=== PATIENT | male | born 1940 | race Caucasian/White ===

== ENCOUNTER 2017-08-19 19:22 | Emergency (ER) | payer MEDICARE, MEDICAID ==
[~2017-08-19] VITALS: Ht 170.2 cm; Wt 94.9 kg
[~2017-08-19 19:22] MED LIST: ALBU18HF2 IH; ASPI-1265 PO; COR3.125T PO; CYAN-19 PO; FINA5TAB11 PO; FLO0.4C PO; FLUT1DIS4 INH; GEMF600T3 PO; NIT5P TD; NORCO10T PO; OMEG1CAP PO; PREN-139 PO; SPIIN IH; SUCR1ORA PO; TRAM50TA2 PO
[2017-08-19 21:00] LABS: BASOPHILS % (AUTO) 0.3 % (0-1); EOSINOPHILS # (AUTO) 0.3 X10'3 (0-0.9); HEMATOCRIT 41.3 % (42.0-52.0); HEMOGLOBIN 14.2 g/dl (14.0-17.9); LYMPHOCYTES # (AUTO) 1.4 X10'3 (1.1-4.8); LYMPHOCYTES % (AUTO) 24.5 % (21-51); MEAN CORPUSCULAR HEMOGLOBIN 33.9 PG (27.0-31.0); MEAN CORPUSCULAR HGB CONC 34.4 % (33.0-36.5); MEAN CORPUSCULAR VOLUME 98.4 FL (78-98); MEAN PLATELET VOLUME 8.4 FL (7.4-10.4); MONOCYTES # (AUTO) 0.5 X10'3 (0-0.9); MONOCYTES % (AUTO) 9.4 % (2-12); NEUTROPHILS # (AUTO) 3.4 X10'3 (1.8-7.7); NEUTROPHILS % (AUTO) 60.8 % (42-75); PLATELET COUNT 162 X10'3 (140-440); RED BLOOD COUNT 4.19 X10'6 (4.70-6.10); RED CELL DISTRIBUTION WIDTH 12.7 % (11.5-14.5); WHITE BLOOD COUNT 5.6 X10'3 (4.5-11.0)
[2017-08-19 21:07] LABS: PARTIAL THROMBOPLASTIN TIME 24 SECONDS (22-32); PROTHROMBIN TIME 10.1 SECONDS (9.0-12.0)
[2017-08-19 21:09] LABS: ALANINE AMINOTRANSFERASE 50 U/L (12-78); ALKALINE PHOSPHATASE 58 IU/L (46-116); ANION GAP 4 (8-16); ASPARTATE AMINO TRANSFERASE 35 U/L (10-37); BILIRUBIN,TOTAL 0.3 MG/DL (0.1-1.0); BLOOD UREA NITROGEN 22 MG/DL (7-18); BUN/CREATININE RATIO 22.2 (5.4-32.0); CALCIUM 9.2 MG/DL (8.5-10.1); CHLORIDE 103 MMOL/L (99-107); CREATININE 0.99 MG/DL (0.60-1.10); GLUCOSE 105 MG/DL (70-104); POTASSIUM 4.2 MMOL/L (3.5-5.1); SODIUM 139 MMOL/L (135-145); TOTAL CARBON DIOXIDE 32.4 MMOL/L (24-32); TOTAL PROTEIN 7.9 G/DL (6.4-8.2); eGFR 73 ML/MIN
[2017-08-19] MEDS ORDERED: BENZ-16 PO (21:45)
[2017-08-19 22:18] VITALS: BP 139/77
== END 2017-08-19 22:20 | disposition home or self-care (01) ==
LOC: ER 19:23
DX: B34.9 Viral infection, unspecified (principal); I25.10 Atherosclerotic heart disease of native coronary artery without angina pectoris; I10 Essential (primary) hypertension; E78.00 Pure hypercholesterolemia, unspecified; J44.9 Chronic obstructive pulmonary disease, unspecified; G89.29 Other chronic pain; I25.2 Old myocardial infarction; Z86.718 Personal history of other venous thrombosis and embolism; Z90.49 Acquired absence of other specified parts of digestive tract; Z95.5 Presence of coronary angioplasty implant and graft; Z88.0 Allergy status to penicillin; Z88.8 Allergy status to other drugs, medicaments and biological substances; Z79.82 Long term (current) use of aspirin; Z79.899 Other long term (current) drug therapy; Z86.73 Personal history of transient ischemic attack (TIA), and cerebral infarction without residual deficits
CPT/HCPCS: 36415; 71045; 80053; 84484; 85025; 85610; 85730; 93005; 99285

== ENCOUNTER 2018-03-22 01:11 | Emergency (ER) | payer MEDICARE, MEDICAID ==
[~2018-03-22] VITALS: Ht 170.2 cm; Wt 77.8 kg
[~2018-03-22 01:11] MED LIST changes: +BENZ-16 PO; -GEMF600T3 PO; +GEMF600T4 PO
[2018-03-22 03:36] VITALS: BP 114/61
== END 2018-03-22 03:43 | disposition home or self-care (01) ==
LOC: ER 01:12
DX: R04.0 Epistaxis (principal); I25.10 Atherosclerotic heart disease of native coronary artery without angina pectoris; E78.00 Pure hypercholesterolemia, unspecified; I10 Essential (primary) hypertension; I25.2 Old myocardial infarction; J44.9 Chronic obstructive pulmonary disease, unspecified; Z90.49 Acquired absence of other specified parts of digestive tract; Z98.890 Other specified postprocedural states; Z98.61 Coronary angioplasty status; Z60.2 Problems related to living alone; Z86.73 Personal history of transient ischemic attack (TIA), and cerebral infarction without residual deficits; Z88.0 Allergy status to penicillin; Z88.6 Allergy status to analgesic agent; Z79.82 Long term (current) use of aspirin; Z79.899 Other long term (current) drug therapy
CPT/HCPCS: 99281

== ENCOUNTER 2018-04-14 23:07 | Inpatient (IN) | payer MEDICARE, MEDICAID, OTHER ==
[~2018-04-14] VITALS: Ht 170.2 cm; Wt 86.4 kg
[2018-04-14 23:42] LABS: BASOPHILS % (AUTO) 0.4 % (0-1); EOSINOPHILS # (AUTO) 0.3 X10'3 (0-0.9); EOSINOPHILS % (AUTO) 5.3 % (0-6); HEMOGLOBIN 14.5 g/dl (14.0-17.9); LYMPHOCYTES # (AUTO) 1.8 X10'3 (1.1-4.8); LYMPHOCYTES % (AUTO) 27.9 % (21-51); MEAN CORPUSCULAR HEMOGLOBIN 34.2 PG (27.0-31.0); MEAN CORPUSCULAR HGB CONC 34.6 % (33.0-36.5); MEAN CORPUSCULAR VOLUME 98.8 FL (78-98); MEAN PLATELET VOLUME 8.5 FL (7.4-10.4); MONOCYTES # (AUTO) 0.5 X10'3 (0-0.9); MONOCYTES % (AUTO) 7.8 % (2-12); NEUTROPHILS # (AUTO) 3.8 X10'3 (1.8-7.7); NEUTROPHILS % (AUTO) 58.6 % (42-75); PLATELET COUNT 198 X10'3 (140-440); RED BLOOD COUNT 4.25 X10'6 (4.70-6.10); RED CELL DISTRIBUTION WIDTH 13.1 % (11.5-14.5); WHITE BLOOD COUNT 6.5 X10'3 (4.5-11.0)
[2018-04-14 23:51] LABS: PROTHROMBIN TIME 10.1 SECONDS (9.0-12.0)
[2018-04-14 23:58] LABS: ALANINE AMINOTRANSFERASE 33 U/L (12-78); ALBUMIN 2.9 G/DL (3.4-5.0); ALBUMIN/GLOBULIN RATIO 1.2 (1.1-1.5); ALKALINE PHOSPHATASE 55 IU/L (46-116); ANION GAP 11 (8-16); ASPARTATE AMINO TRANSFERASE 24 U/L (10-37); BILIRUBIN,TOTAL 0.3 MG/DL (0.1-1.0); BLOOD UREA NITROGEN 11 MG/DL (7-18); BUN/CREATININE RATIO 15.1 (5.4-32.0); CALCIUM 6.3 MG/DL (8.5-10.1); CHLORIDE 116 MMOL/L (99-107); CREATININE 0.73 MG/DL (0.60-1.10); GLUCOSE 95 MG/DL (70-104); SODIUM 144 MMOL/L (135-145); TOTAL CARBON DIOXIDE 17.2 MMOL/L (24-32); TOTAL PROTEIN 5.4 G/DL (6.4-8.2); eGFR > 90 ML/MIN
[2018-04-15] MEDS ORDERED: morphine 4 MG/ML inj SYRINge IV PRN
[2018-04-15] MEDS ORDERED: pantoprazole 40 MG vial IV ONE
[2018-04-15] MEDS ORDERED: ondansetron/PF 4mg/2ml inj IV ONE
[2018-04-15] MEDS ORDERED: normal saline 1000ML IV soln IVB ONE
[2018-04-15 00:03] LABS: CLARITY,URINE SLIGHTLY CLOUDY (Clear); COLOR,URINE YELLOW (Yellow); GLUCOSE, URINE NEGATIVE (Neg); KETONES,URINE NEGATIVE (Neg); LEUKOCYTE ESTERASE ,URINE NEGATIVE (Neg); NITRITES, URINE NEGATIVE (Neg); OCCULT BLOOD,URINE TRACE-INTACT (Neg); PH,URINE 5.5 (4.8-8.0); PROTEIN,URINE 30 mg/dl (Neg); UROBILINOGEN,URINE 0.2 E.U/dL (0.2-1.0)
[2018-04-15 00:04] LABS: POTASSIUM 2.4 MMOL/L (3.5-5.1)
[2018-04-15 00:08] LABS: UA COLLECTION TYPE CLN CATCH MIDSTREAM
[2018-04-15 00:10] LABS: BACTERIA,URINE FEW /HPF (Neg); MUCUS STRANDS FEW /LPF (Neg); SQUAMOUS EPITHELIAL CELL,UR FEW /LPF (FEW); WBC,URINE 0-4 /HPF (0-4)
[2018-04-15 00:12] LABS: CELLULAR CAST 0-4 /LPF (NEGATIVE)
[2018-04-15 00:12] LABS: LIPASE 195 U/L (73-393)
[2018-04-15] MEDS: potassium 10mEq/100ml NS w/LIDOcaine (10mg/bag) IV SCH ×2 (00:32→03:05)
[2018-04-15] MEDS ORDERED: iohexol 300mg/ml 100ml inj. ONE (00:45)
[2018-04-15] MEDS ORDERED: acetaminophen 650mg rectal suppository RC PRN (02:25)
[2018-04-15] MEDS ORDERED: diphenhydrAMINE 50 mg/ml inj IV PRN (02:25)
[2018-04-15] MEDS ORDERED: metoclopramide 5 mg/ml inj IV PRN (02:25)
[2018-04-15] MEDS ORDERED: mag hydrox/Alum hydrox/simeth 30ml oral suspension PO PRN (02:25)
[2018-04-15] MEDS ORDERED: morphine 2 MG/ML inj. syringe IV PRN ×2 (02:25)
[2018-04-15] MEDS ORDERED: acetaminophen 325mg tablet PO PRN ×2 (02:25)
[2018-04-15] MEDS ORDERED: HYDROcodone/acetaminophen 5mg/325mg tablet PO PRN (02:25)
[2018-04-15] MEDS ORDERED: diphenhydrAMINE 25mg capsule PO PRN (02:25)
[2018-04-15] MEDS ORDERED: bisacodyl 10mg suppository rectal RC PRN (02:25)
[2018-04-15] MEDS ORDERED: potassium Cl 40MEQ/NS 500ml 500 ML IV PRN (02:25)
[2018-04-15] MEDS ORDERED: magnesium hydroxide 30ml (MOM) UD suspension PO PRN (02:25)
[2018-04-15] MEDS ORDERED: potassium Cl 20 mEq SR tablet PO PRN ×2 (02:25)
[2018-04-15] MEDS ORDERED: ondansetron/PF 4mg/2ml inj IV PRN (02:25)
[2018-04-15] MEDS ORDERED: HYDROmorphone inj. 0.5 MG/0.5 ML DISP.SYRIN IV PRN ×2 (02:25)
[2018-04-15] MEDS ORDERED: HYDROmorphone 1 mg/ml syringe IV PRN (02:31)
[2018-04-15 02:47] LABS: PARTIAL THROMBOPLASTIN TIME 25 SECONDS (22-32)
[2018-04-15 02:54] LABS: HEMOGLOBIN A1C 6.1 % (4.5-6.2)
[2018-04-15] MEDS ORDERED: ROSU20TA PO (02:54)
[2018-04-15 02:58] LABS: MAGNESIUM 1.5 MG/DL (1.5-2.4); PHOSPHORUS 2.6 MG/DL (2.3-4.5)
[2018-04-15] MEDS: potassium Cl 20mEq in NS 1,000 ML IV SCH ×3 (03:06→20:34)
[2018-04-15] MEDS: HYDROmorphone 1 mg/ml syringe IV PRN ×2 (04:14→21:37)
[2018-04-15 05:22] VITALS: BP 127/72
[2018-04-15 07:16] VITALS: BP 128/74
[2018-04-15] MEDS: heparin, porcine 5000 units/ml vial SQ SCH ×2 (07:26→20:26)
[2018-04-15] MEDS: potassium Cl 40MEQ/NS 500ml 500 ML IV PRN ×2 (07:26→12:44)
[2018-04-15] MEDS: docusate sod 100mg capsule PO SCH ×2 (07:27→20:00)
[2018-04-15] MEDS: K and/or MAG REPLACEMENT MC SCH (07:27)
[2018-04-15] MEDS: magnesium oxide 400mg tablet PO SCH ×3 (07:37→23:08)
[2018-04-15] MEDS ORDERED: pantoprazole 40 MG vial IV SCH (08:00)
[2018-04-15] MEDS ORDERED: HYDROcodone/acetaminophen 10/325mg tab PO PRN (10:00)
[2018-04-15] MEDS: ipratropium 0.5 MG/2.5ML nebule IH SCH ×3 (10:40→20:43)
[2018-04-15 10:44] LABS: OCCULT BLOOD STOOL NEGATIVE (Neg)
[2018-04-15 10:45] LABS: C DIFF ANTIGEN NEGATIVE (NEGATIVE); C DIFF SPECIMEN=DIARRHEA? ACCEPTABLE; C DIFFICILE TOXINS A&B NEGATIVE (Neg)
[2018-04-15 11:00] VITALS: BP 137/68
[2018-04-15] MEDS: HYDROcodone/acetaminophen 10/325mg tab PO PRN ×2 (15:06→20:34)
[2018-04-15 20:00] VITALS: BP 132/88
[2018-04-15] MEDS: sucralfate 1gm/10ml UD suspension PO SCH (20:24)
[2018-04-15] MEDS: omega-3 acid ethyl esters 1GM capsule PO SCH (20:24)
[2018-04-15] MEDS: gemfibrozil 600mg tablet PO SCH (20:25)
[2018-04-15] MEDS: carvedilol 6.25mg tablet PO SCH (20:25)
[2018-04-15] MEDS ORDERED: temazepam 15mg capsule PO PRN (21:00)
[2018-04-15] MEDS ORDERED: tamsulosin 0.4mg capsule PO SCH (21:00)
[2018-04-15] MEDS ORDERED: SUMA25TA35 PO (21:47)
[2018-04-15] MEDS ORDERED: SUMAtriptan 25 MG tablet PO ONE (22:00)
[2018-04-16] VITALS: BP 116/65
[2018-04-16] MEDS: ipratropium 0.5 MG/2.5ML nebule IH SCH ×2 (02:16→08:06)
[2018-04-16 05:06] LABS: BASOPHILS % (AUTO) 0.5 % (0-1); EOSINOPHILS # (AUTO) 0.3 X10'3 (0-0.9); EOSINOPHILS % (AUTO) 6.9 % (0-6); HEMATOCRIT 34.8 % (42.0-52.0); HEMOGLOBIN 12.3 g/dl (14.0-17.9); LYMPHOCYTES # (AUTO) 1.6 X10'3 (1.1-4.8); LYMPHOCYTES % (AUTO) 43.7 % (21-51); MEAN CORPUSCULAR HEMOGLOBIN 34.6 PG (27.0-31.0); MEAN CORPUSCULAR HGB CONC 35.3 % (33.0-36.5); MEAN CORPUSCULAR VOLUME 97.9 FL (78-98); MEAN PLATELET VOLUME 8.6 FL (7.4-10.4); MONOCYTES # (AUTO) 0.2 X10'3 (0-0.9); MONOCYTES % (AUTO) 6.7 % (2-12); NEUTROPHILS # (AUTO) 1.6 X10'3 (1.8-7.7); NEUTROPHILS % (AUTO) 42.2 % (42-75); PLATELET COUNT 134 X10'3 (140-440); RED BLOOD COUNT 3.55 X10'6 (4.70-6.10); RED CELL DISTRIBUTION WIDTH 13.4 % (11.5-14.5); WHITE BLOOD COUNT 3.7 X10'3 (4.5-11.0)
[2018-04-16] MEDS: potassium Cl 20mEq in NS 1,000 ML IV SCH (05:06)
[2018-04-16 05:30] LABS: ALANINE AMINOTRANSFERASE 39 U/L (12-78); ALBUMIN 3.1 G/DL (3.4-5.0); ALKALINE PHOSPHATASE 61 IU/L (46-116); ANION GAP 10 (8-16); ASPARTATE AMINO TRANSFERASE 26 U/L (10-37); BILIRUBIN,TOTAL 0.2 MG/DL (0.1-1.0); BLOOD UREA NITROGEN 14 MG/DL (7-18); BUN/CREATININE RATIO 16.9 (5.4-32.0); CALCIUM 8.1 MG/DL (8.5-10.1); CHLORIDE 110 MMOL/L (99-107); CREATININE 0.83 MG/DL (0.60-1.10); GLUCOSE 98 MG/DL (70-104); SODIUM 140 MMOL/L (135-145); TOTAL CARBON DIOXIDE 20.2 MMOL/L (24-32); TOTAL PROTEIN 6.1 G/DL (6.4-8.2); eGFR 89 ML/MIN
[2018-04-16 07:20] VITALS: BP 128/80
[2018-04-16] MEDS ORDERED: pantoprazole 40mg Tablet.DR PO SCH (07:30)
[2018-04-16] MEDS: sucralfate 1gm/10ml UD suspension PO SCH (07:57)
[2018-04-16] MEDS: omega-3 acid ethyl esters 1GM capsule PO SCH (07:59)
[2018-04-16] MEDS: gemfibrozil 600mg tablet PO SCH (07:59)
[2018-04-16] MEDS: carvedilol 6.25mg tablet PO SCH (07:59)
[2018-04-16] MEDS: magnesium oxide 400mg tablet PO SCH (07:59)
[2018-04-16] MEDS: heparin, porcine 5000 units/ml vial SQ SCH (07:59)
[2018-04-16] MEDS: docusate sod 100mg capsule PO SCH (07:59)
[2018-04-16] MEDS ORDERED: cyanocobalamin 500mcg tablet PO SCH (08:00)
[2018-04-16] MEDS ORDERED: atorvastatin 20mg tablet PO SCH (08:00)
[2018-04-16] MEDS ORDERED: nitroGLYCERIN 0.2mg/hour patch TD SCH (08:00)
[2018-04-16] MEDS: K and/or MAG REPLACEMENT MC SCH (08:00)
[2018-04-16] MEDS ORDERED: finasteride 5mg tablet PO SCH (08:00)
[2018-04-16] MEDS ORDERED: PNV NO.63/IRON,CARBONYL/FA/DHA 1 EACH CAPSULE PO SCH (08:00)
[2018-04-16] MEDS ORDERED: aspirin 81mg tab.chew PO SCH (08:00)
[2018-04-16] MEDS ORDERED: PANT40TA4 PO (09:08)
== END 2018-04-16 11:25 | disposition home or self-care (01) | DRG 392 ==
LOC: ER 23:07 → ED HOLD 04-15 02:22 → SUR 3N 04-15 04:59
PROVIDERS: ADMIT Family Medicine; ATTEND Family Medicine
PROC: BW211ZZ Computerized Tomography (CT Scan) of Abdomen and Pelvis using Low Osmolar Contrast (ICD-10-PCS; principal; 2018-04-15)
DX: A08.4 Viral intestinal infection, unspecified (principal); E87.6 Hypokalemia; I25.10 Atherosclerotic heart disease of native coronary artery without angina pectoris; E78.00 Pure hypercholesterolemia, unspecified; E78.1 Pure hyperglyceridemia; E78.5 Hyperlipidemia, unspecified; E86.0 Dehydration; I11.0 Hypertensive heart disease with heart failure; G89.29 Other chronic pain; K21.9 Gastro-esophageal reflux disease without esophagitis; M54.9 Dorsalgia, unspecified; J44.9 Chronic obstructive pulmonary disease, unspecified; Z60.2 Problems related to living alone; N40.0 Benign prostatic hyperplasia without lower urinary tract symptoms; I50.9 Heart failure, unspecified; I25.2 Old myocardial infarction; Z90.49 Acquired absence of other specified parts of digestive tract; Z95.5 Presence of coronary angioplasty implant and graft; Z88.5 Allergy status to narcotic agent; Z88.0 Allergy status to penicillin; Z79.899 Other long term (current) drug therapy; Z79.82 Long term (current) use of aspirin; Z86.73 Personal history of transient ischemic attack (TIA), and cerebral infarction without residual deficits; Z87.891 Personal history of nicotine dependence; Z86.718 Personal history of other venous thrombosis and embolism
CPT/HCPCS: 36415; 71045; 74177; 80053; 81001; 81003; 82272; 83036; 83690; 83735; 83880; 84100; 84132; 84443; 85025; 85610; 85730; 87045; 87046; 87070; 87324; 87449; 89055; 94640; 94760; 96361; 96374; 96375; 99285; C9113; J1170; J1644; J2270; J2405; J2765; J3420; J3480; J7030; Q9967

== ENCOUNTER 2018-04-18 22:43 | Emergency (ER) | payer MEDICARE, MEDICAID, OTHER ==
[~2018-04-18] VITALS: Ht 170.2 cm; Wt 78.2 kg
[~2018-04-18 22:43] MED LIST changes: -ALBU18HF2 IH; -BENZ-16 PO; -FLUT1DIS4 INH; +PANT40TA4 PO; +ROSU20TA PO; -SUCR1ORA PO; +SUMA25TA35 PO; -TRAM50TA2 PO
[2018-04-18 23:33] LABS: BASOPHILS % (AUTO) 0.5 % (0-1); EOSINOPHILS # (AUTO) 0.4 X10'3 (0-0.9); EOSINOPHILS % (AUTO) 6.9 % (0-6); HEMATOCRIT 38.9 % (42.0-52.0); HEMOGLOBIN 13.6 g/dl (14.0-17.9); LYMPHOCYTES # (AUTO) 2.2 X10'3 (1.1-4.8); LYMPHOCYTES % (AUTO) 40.2 % (21-51); MEAN CORPUSCULAR HEMOGLOBIN 34.2 PG (27.0-31.0); MEAN CORPUSCULAR HGB CONC 34.9 % (33.0-36.5); MEAN CORPUSCULAR VOLUME 97.8 FL (78-98); MONOCYTES # (AUTO) 0.5 X10'3 (0-0.9); MONOCYTES % (AUTO) 9.6 % (2-12); NEUTROPHILS # (AUTO) 2.3 X10'3 (1.8-7.7); NEUTROPHILS % (AUTO) 42.8 % (42-75); PLATELET COUNT 172 X10'3 (140-440); RED BLOOD COUNT 3.97 X10'6 (4.70-6.10); RED CELL DISTRIBUTION WIDTH 13.2 % (11.5-14.5); WHITE BLOOD COUNT 5.4 X10'3 (4.5-11.0)
[2018-04-18 23:44] LABS: INR 0.9 INR; PROTHROMBIN TIME 9.5 SECONDS (9.0-12.0)
[2018-04-18 23:48] LABS: ALANINE AMINOTRANSFERASE 42 U/L (12-78); ALBUMIN 3.8 G/DL (3.4-5.0); ALBUMIN/GLOBULIN RATIO 1.1 (1.1-1.5); ALKALINE PHOSPHATASE 73 IU/L (46-116); ANION GAP 8 (8-16); ASPARTATE AMINO TRANSFERASE 24 U/L (10-37); BILIRUBIN,TOTAL 0.2 MG/DL (0.1-1.0); BLOOD UREA NITROGEN 13 MG/DL (7-18); BUN/CREATININE RATIO 15.1 (5.4-32.0); CALCIUM 8.7 MG/DL (8.5-10.1); CHLORIDE 106 MMOL/L (99-107); CREATININE 0.86 MG/DL (0.60-1.10); GLUCOSE 115 MG/DL (70-104); POTASSIUM 4.1 MMOL/L (3.5-5.1); SODIUM 141 MMOL/L (135-145); TOTAL CARBON DIOXIDE 26.9 MMOL/L (24-32); TOTAL PROTEIN 7.3 G/DL (6.4-8.2); eGFR 86 ML/MIN
[2018-04-19] MEDS ORDERED: simethicone 125mg capsule PO SCH (00:05)
[2018-04-19 00:40] VITALS: BP 129/74
== END 2018-04-19 01:15 | disposition home or self-care (01) ==
LOC: ER 22:44
DX: R10.10 Upper abdominal pain, unspecified (principal); R14.0 Abdominal distension (gaseous); R30.9 Painful micturition, unspecified; I25.10 Atherosclerotic heart disease of native coronary artery without angina pectoris; E78.00 Pure hypercholesterolemia, unspecified; I10 Essential (primary) hypertension; I25.2 Old myocardial infarction; J44.9 Chronic obstructive pulmonary disease, unspecified; G89.29 Other chronic pain; Z86.73 Personal history of transient ischemic attack (TIA), and cerebral infarction without residual deficits; Z86.718 Personal history of other venous thrombosis and embolism; Z98.61 Coronary angioplasty status; Z90.49 Acquired absence of other specified parts of digestive tract; Z98.890 Other specified postprocedural states; Z60.2 Problems related to living alone; Z88.0 Allergy status to penicillin; Z88.6 Allergy status to analgesic agent; Z79.82 Long term (current) use of aspirin; Z79.899 Other long term (current) drug therapy
CPT/HCPCS: 36415; 74018; 80053; 85025; 85610; 99285

== ENCOUNTER 2018-04-20 18:44 | Inpatient (IN) | payer MEDICARE, MEDICAID, OTHER ==
[~2018-04-20] VITALS: Ht 170.2 cm; Wt 86.4 kg
[2018-04-20] MEDS ORDERED: ondansetron/PF 4mg/2ml inj IV ONE (19:35)
[2018-04-20] MEDS ORDERED: normal saline 1000ml 1,000 ML IV ONE (19:35)
[2018-04-20 19:48] LABS: BASOPHILS % (AUTO) 0.3 % (0-1); EOSINOPHILS # (AUTO) 0.3 X10'3 (0-0.9); EOSINOPHILS % (AUTO) 5.9 % (0-6); HEMATOCRIT 42.4 % (42.0-52.0); HEMOGLOBIN 14.6 g/dl (14.0-17.9); LYMPHOCYTES # (AUTO) 1.9 X10'3 (1.1-4.8); MEAN CORPUSCULAR HGB CONC 34.4 % (33.0-36.5); MEAN CORPUSCULAR VOLUME 98.7 FL (78-98); MEAN PLATELET VOLUME 8.2 FL (7.4-10.4); MONOCYTES # (AUTO) 0.5 X10'3 (0-0.9); MONOCYTES % (AUTO) 9.5 % (2-12); NEUTROPHILS # (AUTO) 2.8 X10'3 (1.8-7.7); NEUTROPHILS % (AUTO) 50.3 % (42-75); PLATELET COUNT 196 X10'3 (140-440); RED BLOOD COUNT 4.29 X10'6 (4.70-6.10); RED CELL DISTRIBUTION WIDTH 13.3 % (11.5-14.5); WHITE BLOOD COUNT 5.7 X10'3 (4.5-11.0)
[2018-04-20 19:57] LABS: INR 0.9 INR; PROTHROMBIN TIME 9.7 SECONDS (9.0-12.0)
[2018-04-20 20:06] LABS: ALANINE AMINOTRANSFERASE 50 U/L (12-78); ALBUMIN 4.1 G/DL (3.4-5.0); ALBUMIN/GLOBULIN RATIO 1.1 (1.1-1.5); ALKALINE PHOSPHATASE 74 IU/L (46-116); ANION GAP 8 (8-16); ASPARTATE AMINO TRANSFERASE 29 U/L (10-37); BILIRUBIN,TOTAL 0.2 MG/DL (0.1-1.0); BLOOD UREA NITROGEN 15 MG/DL (7-18); BUN/CREATININE RATIO 16.9 (5.4-32.0); CALCIUM 9.1 MG/DL (8.5-10.1); CHLORIDE 108 MMOL/L (99-107); CREATININE 0.89 MG/DL (0.60-1.10); GLUCOSE 91 MG/DL (70-104); LIPASE 354 U/L (73-393); POTASSIUM 3.9 MMOL/L (3.5-5.1); SODIUM 141 MMOL/L (135-145); TOTAL CARBON DIOXIDE 24.8 MMOL/L (24-32); TOTAL PROTEIN 7.8 G/DL (6.4-8.2); eGFR 82 ML/MIN
[2018-04-20 20:35] LABS: CLARITY,URINE CLEAR (Clear); COLOR,URINE YELLOW (Yellow); GLUCOSE, URINE NEGATIVE (Neg); KETONES,URINE TRACE mg/dl (Neg); LEUKOCYTE ESTERASE ,URINE NEGATIVE (Neg); NITRITES, URINE NEGATIVE (Neg); OCCULT BLOOD,URINE NEGATIVE (Neg); PROTEIN,URINE NEGATIVE (Neg); UROBILINOGEN,URINE 0.2 E.U/dL (0.2-1.0)
[2018-04-20 20:40] LABS: UA COLLECTION TYPE CLN CATCH MIDSTREAM
[2018-04-20] MEDS ORDERED: temazepam 15mg capsule PO PRN (21:00)
[2018-04-20] MEDS ORDERED: HYDROmorphone 1 mg/ml syringe IV ONE (22:15)
[2018-04-20] MEDS ORDERED: LIDOcaine Viscous 15ml cup MM PRN (22:15)
[2018-04-20] MEDS ORDERED: SUMAtriptan 25 MG tablet PO PRN (23:00)
[2018-04-20] MEDS ORDERED: HYDROcodone/acetaminophen 10/325mg tab PO PRN (23:00)
[2018-04-20] MEDS: normal saline 1000ml 1,000 ML IV SCH (23:06)
[2018-04-20] MEDS ORDERED: magnesium hydroxide 30ml (MOM) UD suspension PO PRN (23:10)
[2018-04-20] MEDS ORDERED: mag hydrox/Alum hydrox/simeth 30ml oral suspension PO PRN (23:10)
[2018-04-20] MEDS ORDERED: ondansetron/PF 4mg/2ml inj IV PRN (23:10)
[2018-04-20] MEDS ORDERED: diphenhydrAMINE 25mg capsule PO PRN (23:10)
[2018-04-20] MEDS ORDERED: morphine 2 MG/ML inj. syringe IV PRN ×2 (23:10)
[2018-04-20] MEDS ORDERED: acetaminophen 325mg tablet PO PRN (23:10)
[2018-04-20] MEDS ORDERED: bisacodyl 10mg suppository rectal RC PRN (23:10)
[2018-04-20] MEDS ORDERED: HYDROcodone/acetaminophen 5mg/325mg tablet PO PRN (23:10)
[2018-04-20] MEDS ORDERED: acetaminophen 650mg rectal suppository RC PRN (23:10)
[2018-04-20] MEDS ORDERED: diphenhydrAMINE 50 mg/ml inj IV PRN (23:10)
[2018-04-20 23:44] LABS: PARTIAL THROMBOPLASTIN TIME 24 SECONDS (22-32)
[2018-04-20 23:50] LABS: MAGNESIUM 2.2 MG/DL (1.5-2.4); PHOSPHORUS 3.5 MG/DL (2.3-4.5)
[2018-04-21 00:07] LABS: H PYLORI ANTIBODY NEGATIVE (Neg)
[2018-04-21 00:30] VITALS: BP 146/82
[2018-04-21] MEDS: metoclopramide 5 mg/ml inj IV SCH ×4 (02:01→20:25)
[2018-04-21] MEDS: ipratropium 0.5 MG/2.5ML nebule IH SCH ×3 (03:21→19:55)
[2018-04-21] MEDS: HYDROcodone/acetaminophen 10/325mg tab PO PRN ×4 (03:54→20:25)
[2018-04-21 05:16] LABS: BASOPHILS % (AUTO) 0.4 % (0-1); EOSINOPHILS # (AUTO) 0.2 X10'3 (0-0.9); EOSINOPHILS % (AUTO) 5.2 % (0-6); HEMATOCRIT 38.7 % (42.0-52.0); HEMOGLOBIN 13.4 g/dl (14.0-17.9); LYMPHOCYTES # (AUTO) 1.9 X10'3 (1.1-4.8); LYMPHOCYTES % (AUTO) 41.9 % (21-51); MEAN CORPUSCULAR HEMOGLOBIN 34.2 PG (27.0-31.0); MEAN CORPUSCULAR HGB CONC 34.7 % (33.0-36.5); MEAN CORPUSCULAR VOLUME 98.6 FL (78-98); MEAN PLATELET VOLUME 8.7 FL (7.4-10.4); MONOCYTES # (AUTO) 0.4 X10'3 (0-0.9); MONOCYTES % (AUTO) 8.9 % (2-12); NEUTROPHILS % (AUTO) 43.6 % (42-75); PLATELET COUNT 149 X10'3 (140-440); RED BLOOD COUNT 3.93 X10'6 (4.70-6.10); RED CELL DISTRIBUTION WIDTH 13.3 % (11.5-14.5); WHITE BLOOD COUNT 4.6 X10'3 (4.5-11.0)
[2018-04-21 05:42] LABS: ALANINE AMINOTRANSFERASE 46 U/L (12-78); ALBUMIN 3.6 G/DL (3.4-5.0); ALBUMIN/GLOBULIN RATIO 1.2 (1.1-1.5); ALKALINE PHOSPHATASE 56 IU/L (46-116); ANION GAP 11 (8-16); ASPARTATE AMINO TRANSFERASE 30 U/L (10-37); BILIRUBIN,TOTAL 0.3 MG/DL (0.1-1.0); BLOOD UREA NITROGEN 15 MG/DL (7-18); BUN/CREATININE RATIO 18.3 (5.4-32.0); CALCIUM 8.5 MG/DL (8.5-10.1); CHLORIDE 109 MMOL/L (99-107); CREATININE 0.82 MG/DL (0.60-1.10); GLUCOSE 95 MG/DL (70-104); POTASSIUM 3.8 MMOL/L (3.5-5.1); SODIUM 144 MMOL/L (135-145); TOTAL CARBON DIOXIDE 23.6 MMOL/L (24-32); TOTAL PROTEIN 6.7 G/DL (6.4-8.2); eGFR > 90 ML/MIN
[2018-04-21 06:57] VITALS: BP 135/93
[2018-04-21] MEDS ORDERED: pantoprazole 40mg Tablet.DR PO SCH (07:30)
[2018-04-21] MEDS ORDERED: nitroGLYCERIN 0.2mg/hour patch TD SCH (08:00)
[2018-04-21] MEDS ORDERED: TIOTROPIUM BROMIDE 18 MCG IH SCH (08:00)
[2018-04-21] MEDS: omega-3 acid ethyl esters 1GM capsule PO SCH ×2 (08:03→20:26)
[2018-04-21] MEDS: pantoprazole 40 MG vial IV SCH ×2 (08:03→20:25)
[2018-04-21] MEDS: docusate sod 100mg capsule PO SCH ×2 (08:03→20:25)
[2018-04-21] MEDS: heparin, porcine 5000 units/ml vial SQ SCH ×2 (08:03→20:27)
[2018-04-21] MEDS: aspirin 81mg tab.chew PO SCH (08:04)
[2018-04-21] MEDS: cyanocobalamin 500mcg tablet PO SCH (08:04)
[2018-04-21] MEDS: atorvastatin 20mg tablet PO SCH (08:04)
[2018-04-21] MEDS: carVEDilol 3.125mg tablet PO SCH ×2 (08:04→20:25)
[2018-04-21] MEDS: PNV NO.63/IRON,CARBONYL/FA/DHA 1 EACH CAPSULE PO SCH (10:37)
[2018-04-21] MEDS: normal saline 1000ml 1,000 ML IV SCH ×2 (10:37→22:28)
[2018-04-21] MEDS: finasteride 5mg tablet PO SCH (10:38)
[2018-04-21] MEDS: gemfibrozil 600mg tablet PO SCH ×2 (10:38→20:26)
[2018-04-21 13:58] VITALS: BP 131/51
[2018-04-21 19:30] VITALS: BP 149/69
[2018-04-21] MEDS ORDERED: tamsulosin 0.4mg capsule PO SCH (21:00)
[2018-04-21] MEDS: diatr meglu/diatrizoate 30ml oral sol.-(3 dose) bottle PO SCH (21:32)
[2018-04-22] VITALS: BP 109/72
[2018-04-22] MEDS: metoclopramide 5 mg/ml inj IV SCH ×3 (01:42→15:07)
[2018-04-22] MEDS: HYDROcodone/acetaminophen 10/325mg tab PO PRN ×2 (01:43→05:21)
[2018-04-22] MEDS: ipratropium 0.5 MG/2.5ML nebule IH SCH ×3 (02:46→15:38)
[2018-04-22] MEDS: normal saline 1000ml 1,000 ML IV SCH ×2 (05:06→08:46)
[2018-04-22 05:37] LABS: BASOPHILS % (AUTO) 0.5 % (0-1); EOSINOPHILS # (AUTO) 0.2 X10'3 (0-0.9); EOSINOPHILS % (AUTO) 4.5 % (0-6); HEMATOCRIT 36.7 % (42.0-52.0); HEMOGLOBIN 12.7 g/dl (14.0-17.9); LYMPHOCYTES # (AUTO) 1.6 X10'3 (1.1-4.8); LYMPHOCYTES % (AUTO) 38.4 % (21-51); MEAN CORPUSCULAR HEMOGLOBIN 33.9 PG (27.0-31.0); MEAN CORPUSCULAR HGB CONC 34.7 % (33.0-36.5); MEAN CORPUSCULAR VOLUME 97.7 FL (78-98); MONOCYTES # (AUTO) 0.3 X10'3 (0-0.9); MONOCYTES % (AUTO) 7.8 % (2-12); NEUTROPHILS % (AUTO) 48.8 % (42-75); PLATELET COUNT 139 X10'3 (140-440); RED BLOOD COUNT 3.75 X10'6 (4.70-6.10); RED CELL DISTRIBUTION WIDTH 13.4 % (11.5-14.5); WHITE BLOOD COUNT 4.2 X10'3 (4.5-11.0)
[2018-04-22 05:58] LABS: ALANINE AMINOTRANSFERASE 50 U/L (12-78); ALBUMIN 3.3 G/DL (3.4-5.0); ALBUMIN/GLOBULIN RATIO 1.1 (1.1-1.5); ALKALINE PHOSPHATASE 60 IU/L (46-116); ANION GAP 10 (8-16); ASPARTATE AMINO TRANSFERASE 30 U/L (10-37); BILIRUBIN,TOTAL 0.3 MG/DL (0.1-1.0); BLOOD UREA NITROGEN 11 MG/DL (7-18); BUN/CREATININE RATIO 13.1 (5.4-32.0); CALCIUM 8.2 MG/DL (8.5-10.1); CHLORIDE 108 MMOL/L (99-107); CREATININE 0.84 MG/DL (0.60-1.10); GLUCOSE 98 MG/DL (70-104); POTASSIUM 3.9 MMOL/L (3.5-5.1); SODIUM 142 MMOL/L (135-145); TOTAL CARBON DIOXIDE 23.6 MMOL/L (24-32); TOTAL PROTEIN 6.2 G/DL (6.4-8.2); eGFR 88 ML/MIN
[2018-04-22 07:14] VITALS: BP 133/62
[2018-04-22] MEDS: diatr meglu/diatrizoate 30ml oral sol.-(3 dose) bottle PO SCH ×2 (07:44→10:55)
[2018-04-22] MEDS: pantoprazole 40 MG vial IV SCH (07:47)
[2018-04-22] MEDS: finasteride 5mg tablet PO SCH (08:49)
[2018-04-22] MEDS: carVEDilol 3.125mg tablet PO SCH (08:49)
[2018-04-22] MEDS ORDERED: iohexol 300mg/ml 100ml inj. ONE (09:52)
[2018-04-22] MEDS: gemfibrozil 600mg tablet PO SCH (12:14)
[2018-04-22] MEDS: omega-3 acid ethyl esters 1GM capsule PO SCH (12:14)
[2018-04-22] MEDS: aspirin 81mg tab.chew PO SCH (12:14)
[2018-04-22] MEDS: docusate sod 100mg capsule PO SCH (12:14)
[2018-04-22] MEDS: cyanocobalamin 500mcg tablet PO SCH (12:15)
[2018-04-22] MEDS: PNV NO.63/IRON,CARBONYL/FA/DHA 1 EACH CAPSULE PO SCH (12:15)
[2018-04-22] MEDS: heparin, porcine 5000 units/ml vial SQ SCH (12:16)
[2018-04-22] MEDS: atorvastatin 20mg tablet PO SCH (12:21)
== END 2018-04-22 18:21 | disposition home or self-care (01) | DRG 563 ==
LOC: ER 18:44 → ED HOLD 23:06 → SUR 3N 04-21 00:32
PROVIDERS: ADMIT Family Medicine; ATTEND Family Medicine
PROC: BW211ZZ Computerized Tomography (CT Scan) of Abdomen and Pelvis using Low Osmolar Contrast (ICD-10-PCS; principal; 2018-04-22)
DX: S39.011A Strain of muscle, fascia and tendon of abdomen, initial encounter (principal); K29.00 Acute gastritis without bleeding; K31.84 Gastroparesis; E86.0 Dehydration; E78.00 Pure hypercholesterolemia, unspecified; G89.29 Other chronic pain; M54.9 Dorsalgia, unspecified; R19.7 Diarrhea, unspecified; Z60.2 Problems related to living alone; E78.5 Hyperlipidemia, unspecified; I11.0 Hypertensive heart disease with heart failure; I25.10 Atherosclerotic heart disease of native coronary artery without angina pectoris; X58.XXXA Exposure to other specified factors, initial encounter; I50.9 Heart failure, unspecified; J44.9 Chronic obstructive pulmonary disease, unspecified; Z90.49 Acquired absence of other specified parts of digestive tract; Z95.5 Presence of coronary angioplasty implant and graft; I25.2 Old myocardial infarction; Z99.81 Dependence on supplemental oxygen; Z88.5 Allergy status to narcotic agent; Z88.0 Allergy status to penicillin; Z79.899 Other long term (current) drug therapy; Z79.82 Long term (current) use of aspirin; Z85.038 Personal history of other malignant neoplasm of large intestine; Z86.73 Personal history of transient ischemic attack (TIA), and cerebral infarction without residual deficits; Y93.89 Activity, other specified; Y92.89 Other specified places as the place of occurrence of the external cause; Y99.8 Other external cause status
CPT/HCPCS: 36415; 71045; 74176; 74177; 80053; 81003; 83690; 83735; 83880; 84100; 85025; 85610; 85730; 86677; 87070; 94640; 94760; 96374; 96375; 99285; A4353; A6212; C9113; J1170; J1644; J2270; J2405; J2765; J3420; J7030; Q9963; Q9967

== ENCOUNTER 2018-05-01 09:53 | Observation (INO) | payer MEDICARE, MEDICAID, OTHER ==
[~2018-05-01] VITALS: Ht 171.4 cm; Wt 92.9 kg
[2018-05-01 10:52] LABS: BASOPHILS % (AUTO) 0.4 % (0-1); EOSINOPHILS # (AUTO) 0.2 X10'3 (0-0.9); EOSINOPHILS % (AUTO) 5.1 % (0-6); HEMATOCRIT 40.6 % (42.0-52.0); HEMOGLOBIN 14.1 g/dl (14.0-17.9); LYMPHOCYTES # (AUTO) 1.8 X10'3 (1.1-4.8); LYMPHOCYTES % (AUTO) 39.4 % (21-51); MEAN CORPUSCULAR HEMOGLOBIN 33.7 PG (27.0-31.0); MEAN CORPUSCULAR HGB CONC 34.8 % (33.0-36.5); MEAN CORPUSCULAR VOLUME 96.8 FL (78-98); MEAN PLATELET VOLUME 8.7 FL (7.4-10.4); MONOCYTES # (AUTO) 0.3 X10'3 (0-0.9); MONOCYTES % (AUTO) 6.5 % (2-12); NEUTROPHILS # (AUTO) 2.3 X10'3 (1.8-7.7); NEUTROPHILS % (AUTO) 48.6 % (42-75); PLATELET COUNT 154 X10'3 (140-440); RED BLOOD COUNT 4.19 X10'6 (4.70-6.10); WHITE BLOOD COUNT 4.7 X10'3 (4.5-11.0)
[2018-05-01 11:01] LABS: PARTIAL THROMBOPLASTIN TIME 24 SECONDS (22-32); PROTHROMBIN TIME 9.9 SECONDS (9.0-12.0)
[2018-05-01 11:02] LABS: ALANINE AMINOTRANSFERASE 50 U/L (12-78); ALBUMIN 3.9 G/DL (3.4-5.0); ALBUMIN/GLOBULIN RATIO 1.1 (1.1-1.5); ALKALINE PHOSPHATASE 70 IU/L (46-116); ANION GAP 14 (8-16); ASPARTATE AMINO TRANSFERASE 26 U/L (10-37); BILIRUBIN,TOTAL 0.4 MG/DL (0.1-1.0); BLOOD UREA NITROGEN 12 MG/DL (7-18); CALCIUM 8.9 MG/DL (8.5-10.1); CHLORIDE 106 MMOL/L (99-107); CREATININE 0.92 MG/DL (0.60-1.10); GLUCOSE 139 MG/DL (70-104); POTASSIUM 3.8 MMOL/L (3.5-5.1); SODIUM 143 MMOL/L (135-145); TOTAL PROTEIN 7.3 G/DL (6.4-8.2); eGFR 79 ML/MIN
[2018-05-01] MEDS ORDERED: MULT1TAB74 PO (13:09)
[2018-05-01] MEDS ORDERED: SUMAtriptan 25 MG tablet PO PRN (14:00)
[2018-05-01] MEDS ORDERED: ipratropium 0.5 MG/2.5ML nebule IH PRN (14:05)
[2018-05-01] MEDS ORDERED: atropine 0.1mg/ml 10ml syringe IV PRN (14:45)
[2018-05-01] MEDS ORDERED: nitroGLYCERIN 0.4mg SUBLingual tab SL PRN ×3 (14:45→15:50)
[2018-05-01] MEDS ORDERED: normal saline 500ml IV soln 500 ML IV SCH (14:45)
[2018-05-01] MEDS ORDERED: morphine 4 MG/ML inj SYRINge IV PRN (14:45)
[2018-05-01] MEDS ORDERED: DOBUTamine-DoBUTrex 500mg/D5W 250 ML IV ONE (14:45)
[2018-05-01] MEDS ORDERED: metoprolol tartrate 1mg/ml inj IV PRN ×2 (14:45→15:50)
[2018-05-01] MEDS ORDERED: acetaminophen 325mg tablet PO PRN ×2 (14:45)
[2018-05-01 15:05] LABS: CHOL/HDL RATIO 4.6 (0.00-4.99); CHOLESTEROL 116 MG/DL (0-200); HDL CHOLESTEROL 25 MG/DL (35-60); LDL CHOLESTEROL 70 MG/DL (50-100); TRIGLYCERIDES 190 MG/DL (20-135)
[2018-05-01] MEDS ORDERED: CAFFEINE CITRATE 60 MG/3 ML injection vial IV PRN (15:50)
[2018-05-01] MEDS ORDERED: regadenoson 0.4mg/5ml syringe IV ONE (15:50)
[2018-05-01 16:10] VITALS: BP 143/71
[2018-05-01] MEDS: HYDROcodone/acetaminophen 10/325mg tab PO PRN (17:12)
[2018-05-01 18:00] VITALS: BP 134/68
[2018-05-01] MEDS: gemfibrozil 600mg tablet PO SCH (19:33)
[2018-05-01] MEDS: carvedilol 6.25mg tablet PO SCH (19:34)
[2018-05-01] MEDS: omega-3 acid ethyl esters 1GM capsule PO SCH (19:34)
[2018-05-01] MEDS: morphine 4 MG/ML inj SYRINge IV PRN (19:38)
[2018-05-01] MEDS: tamsulosin 0.4mg capsule PO SCH (21:45)
[2018-05-01 22:00] VITALS: BP 128/61
[2018-05-02] VITALS (12 sets, daily range): BP systolic 113–140; BP diastolic 56–71
[2018-05-02] MEDS: HYDROcodone/acetaminophen 10/325mg tab PO PRN (00:38)
[2018-05-02 05:39] LABS: BASOPHILS % (AUTO) 0.5 % (0-1); EOSINOPHILS # (AUTO) 0.3 X10'3 (0-0.9); EOSINOPHILS % (AUTO) 5.8 % (0-6); HEMATOCRIT 38.7 % (42.0-52.0); HEMOGLOBIN 13.4 g/dl (14.0-17.9); LYMPHOCYTES % (AUTO) 45.7 % (21-51); MEAN CORPUSCULAR HEMOGLOBIN 34.1 PG (27.0-31.0); MEAN CORPUSCULAR HGB CONC 34.6 % (33.0-36.5); MEAN CORPUSCULAR VOLUME 98.5 FL (78-98); MEAN PLATELET VOLUME 8.5 FL (7.4-10.4); MONOCYTES # (AUTO) 0.4 X10'3 (0-0.9); MONOCYTES % (AUTO) 9.1 % (2-12); NEUTROPHILS # (AUTO) 1.7 X10'3 (1.8-7.7); NEUTROPHILS % (AUTO) 38.9 % (42-75); PLATELET COUNT 124 X10'3 (140-440); RED BLOOD COUNT 3.93 X10'6 (4.70-6.10); RED CELL DISTRIBUTION WIDTH 12.8 % (11.5-14.5); WHITE BLOOD COUNT 4.5 X10'3 (4.5-11.0)
[2018-05-02 06:17] LABS: ALANINE AMINOTRANSFERASE 44 U/L (12-78); ALBUMIN 3.6 G/DL (3.4-5.0); ALBUMIN/GLOBULIN RATIO 1.2 (1.1-1.5); ALKALINE PHOSPHATASE 62 IU/L (46-116); ANION GAP 13 (8-16); ASPARTATE AMINO TRANSFERASE 24 U/L (10-37); BILIRUBIN,TOTAL 0.3 MG/DL (0.1-1.0); BLOOD UREA NITROGEN 15 MG/DL (7-18); BUN/CREATININE RATIO 15.6 (5.4-32.0); CALCIUM 9.1 MG/DL (8.5-10.1); CHLORIDE 107 MMOL/L (99-107); CREATININE 0.96 MG/DL (0.60-1.10); GLUCOSE 99 MG/DL (70-104); POTASSIUM 3.8 MMOL/L (3.5-5.1); SODIUM 144 MMOL/L (135-145); TOTAL CARBON DIOXIDE 23.7 MMOL/L (24-32); TOTAL PROTEIN 6.7 G/DL (6.4-8.2); eGFR 76 ML/MIN
[2018-05-02] MEDS: omega-3 acid ethyl esters 1GM capsule PO SCH ×2 (07:51→19:13)
[2018-05-02] MEDS: aspirin 325mg tablet PO SCH (07:51)
[2018-05-02] MEDS: multivitamins, therapeutics tablet PO SCH (07:51)
[2018-05-02] MEDS: finasteride 5mg tablet PO SCH (07:52)
[2018-05-02] MEDS: atorvastatin 20mg tablet PO SCH (07:52)
[2018-05-02] MEDS: gemfibrozil 600mg tablet PO SCH ×2 (07:52→19:13)
[2018-05-02] MEDS: morphine 4 MG/ML inj SYRINge IV PRN ×4 (07:56→23:46)
[2018-05-02] MEDS: cyanocobalamin 500mcg tablet PO SCH (07:58)
[2018-05-02] MEDS ORDERED: aspirin 81mg tab.chew PO SCH (08:00)
[2018-05-02] MEDS: carvedilol 6.25mg tablet PO SCH ×2 (08:00→19:13)
[2018-05-02] MEDS: nitroGLYCERIN 0.2mg/hour patch TD SCH (08:00)
[2018-05-02] MEDS ORDERED: CAFFEINE CITRATE 60 MG/3 ML injection vial IV ONE (09:27)
[2018-05-02] MEDS ORDERED: regadenoson 0.4mg/5ml syringe IV ONE (09:27)
[2018-05-02] MEDS ORDERED: iohexol 300mg/ml 100ml inj. ONE (15:30)
[2018-05-02] MEDS: ipratropium/albuterol 3ml nebule NEB PRN ×2 (19:59→23:44)
[2018-05-02] MEDS: tamsulosin 0.4mg capsule PO SCH (21:09)
[2018-05-03 02:00] VITALS: BP 126/69
[2018-05-03] MEDS: ipratropium/albuterol 3ml nebule NEB PRN (03:46)
[2018-05-03] MEDS: morphine 4 MG/ML inj SYRINge IV PRN ×2 (04:07→08:58)
[2018-05-03 07:18] VITALS: BP 118/62
[2018-05-03] MEDS: aspirin 325mg tablet PO SCH (07:52)
[2018-05-03] MEDS: carvedilol 6.25mg tablet PO SCH (07:53)
[2018-05-03] MEDS: cyanocobalamin 500mcg tablet PO SCH (07:53)
[2018-05-03] MEDS: atorvastatin 20mg tablet PO SCH (07:53)
[2018-05-03] MEDS: finasteride 5mg tablet PO SCH (07:54)
[2018-05-03] MEDS: omega-3 acid ethyl esters 1GM capsule PO SCH (07:54)
[2018-05-03] MEDS: gemfibrozil 600mg tablet PO SCH (07:54)
[2018-05-03] MEDS: multivitamins, therapeutics tablet PO SCH (07:54)
[2018-05-03] MEDS: nitroGLYCERIN 0.2mg/hour patch TD SCH (07:57)
[2018-05-03] MEDS ORDERED: PANT-47 PO (08:37)
[2018-05-03 12:38] VITALS: BP 110/71
== END 2018-05-03 14:30 | disposition home or self-care (01) ==
LOC: ER 09:53 → ED HOLD 14:41 → PCU 3S 15:45
PROVIDERS: ADMIT Internal Medicine; ATTEND Internal Medicine
DX: R07.89 Other chest pain (principal); I10 Essential (primary) hypertension; E78.5 Hyperlipidemia, unspecified; E66.09 Other obesity due to excess calories; J44.9 Chronic obstructive pulmonary disease, unspecified; I25.10 Atherosclerotic heart disease of native coronary artery without angina pectoris; Z79.82 Long term (current) use of aspirin; Z86.73 Personal history of transient ischemic attack (TIA), and cerebral infarction without residual deficits; Z87.891 Personal history of nicotine dependence; Z95.5 Presence of coronary angioplasty implant and graft
CPT/HCPCS: 36415; 71045; 71270; 78452; 80053; 80061; 84484; 85025; 85610; 85730; 87070; 93005; 93017; 94640; 94760; 96374; 96375; 99285; A6258; A9500; G0378; J2270; J7030; Q9967; J3420

== ENCOUNTER 2018-05-09 22:49 | Emergency (ER) | payer MEDICARE, MEDICAID, OTHER ==
[~2018-05-09] VITALS: Ht 172.7 cm; Wt 80.0 kg
[~2018-05-09 22:49] MED LIST changes: +MULT1TAB74 PO; +PANT-47 PO; -PANT40TA4 PO; -PREN-139 PO
[2018-05-09 22:55] VITALS: BP 118/81
== END 2018-05-09 23:37 | disposition home or self-care (01) ==
LOC: ER 22:49
DX: J20.9 Acute bronchitis, unspecified (principal); J44.9 Chronic obstructive pulmonary disease, unspecified; I25.10 Atherosclerotic heart disease of native coronary artery without angina pectoris; E78.00 Pure hypercholesterolemia, unspecified; I10 Essential (primary) hypertension; I25.2 Old myocardial infarction; G89.29 Other chronic pain; Z86.718 Personal history of other venous thrombosis and embolism; Z86.73 Personal history of transient ischemic attack (TIA), and cerebral infarction without residual deficits; Z90.49 Acquired absence of other specified parts of digestive tract; Z98.61 Coronary angioplasty status; Z87.891 Personal history of nicotine dependence; Z88.0 Allergy status to penicillin; Z88.6 Allergy status to analgesic agent; Z79.82 Long term (current) use of aspirin; Z79.899 Other long term (current) drug therapy; Z60.2 Problems related to living alone
CPT/HCPCS: 99284

== ENCOUNTER 2018-05-29 14:22 | Observation (INO) | payer MEDICARE, MEDICAID, OTHER ==
[2018-05-28 10:21] LABS: BASOPHILS % (AUTO) 0.5 % (0-1); EOSINOPHILS # (AUTO) 0.3 X10'3 (0-0.9); EOSINOPHILS % (AUTO) 6.8 % (0-6); HEMATOCRIT 37.3 % (42.0-52.0); LYMPHOCYTES # (AUTO) 1.5 X10'3 (1.1-4.8); LYMPHOCYTES % (AUTO) 37.5 % (21-51); MEAN CORPUSCULAR HGB CONC 34.9 % (33.0-36.5); MEAN CORPUSCULAR VOLUME 97.6 FL (78-98); MEAN PLATELET VOLUME 8.1 FL (7.4-10.4); MONOCYTES # (AUTO) 0.3 X10'3 (0-0.9); MONOCYTES % (AUTO) 8.3 % (2-12); NEUTROPHILS # (AUTO) 1.8 X10'3 (1.8-7.7); NEUTROPHILS % (AUTO) 46.9 % (42-75); PLATELET COUNT 135 X10'3 (140-440); RED BLOOD COUNT 3.83 X10'6 (4.70-6.10); WHITE BLOOD COUNT 3.9 X10'3 (4.5-11.0)
[2018-05-28 10:28] LABS: ALBUMIN 3.6 G/DL (3.4-5.0); ANION GAP 12 (8-16); BLOOD UREA NITROGEN 15 MG/DL (7-18); BUN/CREATININE RATIO 18.5 (5.4-32.0); CALCIUM 8.4 MG/DL (8.5-10.1); CHLORIDE 106 MMOL/L (99-107); CREATININE 0.81 MG/DL (0.60-1.10); GLUCOSE 134 MG/DL (70-104); POTASSIUM 3.8 MMOL/L (3.5-5.1); SODIUM 141 MMOL/L (135-145); TOTAL CARBON DIOXIDE 22.7 MMOL/L (24-32); eGFR > 90 ML/MIN
[2018-05-28 10:39] LABS: PARTIAL THROMBOPLASTIN TIME 25 SECONDS (22-32)
[2018-05-29] VITALS (16 sets, daily range): BP systolic 100–141; BP diastolic 52–93
[~2018-05-29] VITALS: Ht 167.6 cm; Wt 93.9 kg
[2018-05-29] MEDS ORDERED: diphenhydrAMINE 25mg capsule PO PRN (15:00)
[2018-05-29] MEDS ORDERED: LORazepam 0.5 MG tablet PO PRN (15:00)
[2018-05-29] MEDS ORDERED: ADV50250 IH (15:14)
[2018-05-29] MEDS ORDERED: PREN1TAB75 PO (15:14)
[2018-05-29] MEDS ORDERED: NITR0.4T51 SL (15:14)
[2018-05-29] MEDS ORDERED: CHOL10002 PO (15:14)
[2018-05-29] MEDS ORDERED: TOPI25TA15 PO (15:15)
[2018-05-29] MEDS ORDERED: ALB0.5UD IH (15:16)
[2018-05-29] MEDS ORDERED: nitroGLYCERIN-Tridil 50MG/D5W 250 ML IV ONE (16:02)
[2018-05-29] MEDS ORDERED: midazolam 2 mg/2 ml injection ONE (16:03)
[2018-05-29] MEDS ORDERED: fentaNYL/PF 50MCG/1 ML 2ML syringe ONE (16:03)
[2018-05-29] MEDS ORDERED: iohexol 350 MG/ML 50ML vial IV ONE (16:03)
[2018-05-29] MEDS ORDERED: heparin 1,000unit/ml 10ml vial 10 ML ONE (16:03)
[2018-05-29] MEDS ORDERED: LIDOcaine 1% 30ml preserv. free vial ONE (16:03)
[2018-05-29] MEDS ORDERED: iohexol 350MG/ML 100ml bottle IV ONE (16:03)
[2018-05-29] MEDS: normal saline 1000ml 1,000 ML IV SCH ×2 (16:05→21:18)
[2018-05-29 17:31] LABS: ISTAT HGB ART 11.9 g/dl (14.0-18.0); ISTAT Hct ART 35 %PCV (42-52); ISTAT O2 SATURATION ARTERIAL 97 % (95-98); ISTAT SOURCE ART
[2018-05-29 17:31] LABS: ISTAT Hct MIX 35 %PCV (42-52); ISTAT O2 SATURATION MIX VENOUS 63 % (60-80); ISTAT SOURCE MIX
[2018-05-29] MEDS ORDERED: nitroGLYCERIN 0.4mg SUBLingual tab SL PRN (17:55)
[2018-05-29] MEDS ORDERED: albuterol 2.5 MG/3 ML nebule NEB PRN (17:55)
[2018-05-29] MEDS ORDERED: HYDROcodone/acetaminophen 10/325mg tab PO PRN (17:55)
[2018-05-29] MEDS ORDERED: ipratropium 0.5 MG/2.5ML nebule IH PRN (18:10)
[2018-05-29] MEDS: albuterol 2.5 MG/3 ML nebule NEB SCH ×2 (18:10→21:13)
[2018-05-29] MEDS ORDERED: budesonide 0.5mg/2ml UD nebule IH SCH (20:00)
[2018-05-29] MEDS ORDERED: tamsulosin 0.4mg capsule PO SCH (21:00)
[2018-05-29] MEDS: carvedilol 6.25mg tablet PO SCH (21:19)
[2018-05-29] MEDS: gemfibrozil 600mg tablet PO SCH (21:20)
[2018-05-29] MEDS: OMEGA-3/DHA/EPA/FISH OIL 1 EACH CAPSULE.DR PO SCH (21:20)
[2018-05-29] MEDS: topiramate 25mg tablet PO SCH (21:21)
[2018-05-30] MEDS: albuterol 2.5 MG/3 ML nebule NEB SCH (02:38)
[2018-05-30 03:00] VITALS: BP 122/68
[2018-05-30 06:30] VITALS: BP 120/69
[2018-05-30] MEDS: OMEGA-3/DHA/EPA/FISH OIL 1 EACH CAPSULE.DR PO SCH (07:35)
[2018-05-30] MEDS: nitroGLYCERIN 0.2mg/hour patch TD SCH ×2 (07:36→07:39)
[2018-05-30] MEDS: gemfibrozil 600mg tablet PO SCH (07:36)
[2018-05-30] MEDS: carvedilol 6.25mg tablet PO SCH (07:36)
[2018-05-30] MEDS ORDERED: PNV NO.63/IRON,CARBONYL/FA/DHA 1 EACH CAPSULE PO SCH (08:00)
[2018-05-30] MEDS ORDERED: finasteride 5mg tablet PO SCH (08:00)
[2018-05-30] MEDS ORDERED: vitamin D (cholecalciferol) 1,000 unit tablet PO SCH (08:00)
[2018-05-30] MEDS ORDERED: atorvastatin 10mg tablet PO SCH (08:00)
[2018-05-30] MEDS ORDERED: aspirin 81mg tab.chew PO SCH (08:00)
[2018-05-30] MEDS ORDERED: cyanocobalamin 500mcg tablet PO SCH (08:00)
[2018-05-30] MEDS: topiramate 25mg tablet PO SCH (09:17)
== END 2018-05-30 11:00 | disposition home or self-care (01) ==
LOC: SSTAY O 14:22 → PCU 3S 17:00
PROVIDERS: ADMIT Internal Medicine Cardiovascular Disease; ATTEND Internal Medicine Cardiovascular Disease
DX: I25.119 Atherosclerotic heart disease of native coronary artery with unspecified angina pectoris (principal); I10 Essential (primary) hypertension; E78.5 Hyperlipidemia, unspecified; E11.9 Type 2 diabetes mellitus without complications; J44.9 Chronic obstructive pulmonary disease, unspecified; R53.83 Other fatigue; I35.9 Nonrheumatic aortic valve disorder, unspecified; I25.2 Old myocardial infarction; Z87.891 Personal history of nicotine dependence; Z95.5 Presence of coronary angioplasty implant and graft
CPT/HCPCS: 36415; 80048; 82803; 85014; 85025; 85610; 85730; 93460; 94640; 94760; A6257; C1760; C1769; G0378; J1644; J2250; J3010; J3490; J7030; J7626; Q0163; Q9967; 99152; 99153

== ENCOUNTER 2019-02-21 10:57 | Emergency (ER) | payer MEDICARE, MEDICAID, OTHER ==
[~2019-02-21] VITALS: Ht 167.6 cm; Wt 85.5 kg
[~2019-02-21 10:57] MED LIST changes: +ADV50250 IH; +ALB0.5UD IH; +CHOL10002 PO; -CYAN-19 PO; +CYAN100019 PO; -GEMF600T4 PO; +GEMF600T89 PO; -MULT1TAB74 PO; +NITR0.4T51 SL; +PREN1TAB75 PO; -ROSU20TA PO; +ROSU20TA2 PO; -SUMA25TA35 PO; +TOPI25TA15 PO
[2019-02-21] MEDS ORDERED: HYDROcodone/acetaminophen 10/325mg tab PO ONE (12:20)
[2019-02-21] MEDS ORDERED: ketorolac tromethamine 15mg/ml inj. IV ONE (12:20)
[2019-02-21 12:29] LABS: BASOPHILS % (AUTO) 0.5 % (0-1); EOSINOPHILS # (AUTO) 0.2 X10'3 (0-0.9); EOSINOPHILS % (AUTO) 4.4 % (0-6); HEMATOCRIT 41.2 % (42.0-52.0); HEMOGLOBIN 14.2 g/dl (14.0-17.9); LYMPHOCYTES % (AUTO) 40.7 % (21-51); MEAN CORPUSCULAR HEMOGLOBIN 34.3 PG (27.0-31.0); MEAN CORPUSCULAR HGB CONC 34.6 g/dL (33.0-36.5); MEAN CORPUSCULAR VOLUME 99.3 FL (78-98); MEAN PLATELET VOLUME 8.4 FL (7.4-10.4); MONOCYTES # (AUTO) 0.4 X10'3 (0-0.9); MONOCYTES % (AUTO) 7.6 % (2-12); NEUTROPHILS # (AUTO) 2.3 X10'3 (1.8-7.7); NEUTROPHILS % (AUTO) 46.8 % (42-75); PLATELET COUNT 163 X10'3 (140-440); RED BLOOD COUNT 4.15 X10'6 (4.70-6.10); WHITE BLOOD COUNT 4.8 X10'3 (4.5-11.0)
[2019-02-21 12:40] LABS: PARTIAL THROMBOPLASTIN TIME 25 SECONDS (22-32)
[2019-02-21 12:53] LABS: ALANINE AMINOTRANSFERASE 34 U/L (12-78); ALBUMIN 4.1 G/DL (3.4-5.0); ALBUMIN/GLOBULIN RATIO 1.1 (1.1-1.5); ALKALINE PHOSPHATASE 58 IU/L (46-116); ANION GAP 11 (8-16); ASPARTATE AMINO TRANSFERASE 20 U/L (10-37); BILIRUBIN,TOTAL 0.4 MG/DL (0.1-1.0); BLOOD UREA NITROGEN 11 MG/DL (7-18); BUN/CREATININE RATIO 11.7 (5.4-32.0); CALCIUM 8.9 MG/DL (8.5-10.1); CHLORIDE 108 MMOL/L (99-107); CREATININE 0.94 MG/DL (0.60-1.10); GLUCOSE 112 MG/DL (70-104); POTASSIUM 3.9 MMOL/L (3.5-5.1); SODIUM 142 MMOL/L (135-145); TOTAL CARBON DIOXIDE 23.1 MMOL/L (24-32); TOTAL PROTEIN 7.8 G/DL (6.4-8.2); eGFR 77 ML/MIN
[2019-02-21 14:28] VITALS: BP 132/76
== END 2019-02-21 14:30 | disposition home or self-care (01) ==
LOC: ER 11:00
DX: R07.89 Other chest pain (principal); R06.02 Shortness of breath; I25.10 Atherosclerotic heart disease of native coronary artery without angina pectoris; E78.00 Pure hypercholesterolemia, unspecified; I10 Essential (primary) hypertension; I25.2 Old myocardial infarction; J44.9 Chronic obstructive pulmonary disease, unspecified; G89.29 Other chronic pain; Z86.73 Personal history of transient ischemic attack (TIA), and cerebral infarction without residual deficits; Z86.718 Personal history of other venous thrombosis and embolism; Z98.61 Coronary angioplasty status; Z90.49 Acquired absence of other specified parts of digestive tract; Z98.890 Other specified postprocedural states; Z87.891 Personal history of nicotine dependence; Z60.2 Problems related to living alone; Z88.0 Allergy status to penicillin; Z88.6 Allergy status to analgesic agent; Z79.82 Long term (current) use of aspirin; Z79.899 Other long term (current) drug therapy
CPT/HCPCS: 36415; 71045; 80053; 83880; 84484; 85025; 85610; 85730; 93005; 96374; 99284; J1885

== ENCOUNTER 2019-02-23 10:48 | Inpatient (IN) | payer MEDICARE, MEDICAID ==
[~2019-02-23] VITALS: Ht 170.2 cm; Wt 88.1 kg
[2019-02-23 11:40] LABS: BASOPHILS # (AUTO) 0.1 X10'3 (0-0.2); BASOPHILS % (AUTO) 1.1 % (0-1); EOSINOPHILS # (AUTO) 0.2 X10'3 (0-0.9); EOSINOPHILS % (AUTO) 4.3 % (0-6); HEMATOCRIT 39.8 % (42.0-52.0); HEMOGLOBIN 13.6 g/dl (14.0-17.9); LYMPHOCYTES # (AUTO) 1.8 X10'3 (1.1-4.8); LYMPHOCYTES % (AUTO) 36.2 % (21-51); MEAN CORPUSCULAR HEMOGLOBIN 34.1 PG (27.0-31.0); MEAN CORPUSCULAR HGB CONC 34.1 g/dL (33.0-36.5); MEAN CORPUSCULAR VOLUME 99.9 FL (78-98); MEAN PLATELET VOLUME 8.6 FL (7.4-10.4); MONOCYTES # (AUTO) 0.4 X10'3 (0-0.9); MONOCYTES % (AUTO) 8.4 % (2-12); NEUTROPHILS # (AUTO) 2.4 X10'3 (1.8-7.7); PLATELET COUNT 156 X10'3 (140-440); RED BLOOD COUNT 3.98 X10'6 (4.70-6.10); RED CELL DISTRIBUTION WIDTH 12.7 % (11.5-14.5); WHITE BLOOD COUNT 4.9 X10'3 (4.5-11.0)
[2019-02-23 11:55] LABS: ALANINE AMINOTRANSFERASE 33 U/L (12-78); ALBUMIN 3.9 G/DL (3.4-5.0); ALBUMIN/GLOBULIN RATIO 1.1 (1.1-1.5); ALKALINE PHOSPHATASE 61 IU/L (46-116); ANION GAP 9 (8-16); ASPARTATE AMINO TRANSFERASE 23 U/L (10-37); BILIRUBIN,TOTAL 0.3 MG/DL (0.1-1.0); BLOOD UREA NITROGEN 11 MG/DL (7-18); BUN/CREATININE RATIO 12.2 (5.4-32.0); CALCIUM 8.9 MG/DL (8.5-10.1); CHLORIDE 111 MMOL/L (99-107); GLUCOSE 102 MG/DL (70-104); SODIUM 144 MMOL/L (135-145); TOTAL CARBON DIOXIDE 24.4 MMOL/L (24-32); TOTAL PROTEIN 7.3 G/DL (6.4-8.2); eGFR 81 ML/MIN
[2019-02-23 11:56] LABS: PARTIAL THROMBOPLASTIN TIME 25 SECONDS (22-32)
[2019-02-23 12:31] LABS: D-DIMER 1.52 MG/L FEU (0-0.50)
[2019-02-23] MEDS ORDERED: ondansetron/PF 4mg/2ml inj IV PRN (13:10)
[2019-02-23] MEDS ORDERED: magnesium Cl slow-release 64mg tablet PO PRN (13:10)
[2019-02-23] MEDS ORDERED: magnesium 4gm in 100ml NS 100 ML IV PRN (13:10)
[2019-02-23] MEDS ORDERED: potassium Cl 20 mEq SR tablet PO PRN ×2 (13:10)
[2019-02-23] MEDS ORDERED: magnesium 2GM in 50ml NS 50 ML IV PRN (13:10)
[2019-02-23] MEDS ORDERED: potassium CL 10mEq/100ml bag 100 ML IV PRN ×2 (13:10)
[2019-02-23] MEDS ORDERED: acetaminophen 325mg tablet PO PRN (13:10)
[2019-02-23] MEDS ORDERED: mag hydrox/Alum hydrox/simeth 30ml oral suspension PO PRN (13:10)
[2019-02-23] MEDS ORDERED: FLUT100D2 INH (13:33)
[2019-02-23] MEDS ORDERED: CARV6.253 PO (13:33)
[2019-02-23] MEDS ORDERED: RANO500T5 PO (13:33)
[2019-02-23] MEDS ORDERED: nitroGLYCERIN 0.4mg SUBLingual tab SL PRN (14:30)
[2019-02-23] MEDS ORDERED: nitroGLYCERIN 0.2mg/hour patch TD SCH (14:30)
[2019-02-23] MEDS ORDERED: albuterol 2.5 mg/0.5ml nebule NEB PRN (14:30)
--- NOTE | 2019-02-23 14:35 | NUR ---
Pt sitting at bedside eating meal tray as ordered. at bedside visiting. Awaiting inpt bed; will continue to monitor.
[2019-02-23] MEDS: aspirin 81mg tab.chew PO SCH (14:51)
[2019-02-23] MEDS: pantoprazole 40mg Tablet.DR PO SCH (14:53)
[2019-02-23] MEDS ORDERED: albuterol 2.5 MG/3 ML nebule NEB PRN (14:59)
[2019-02-23] MEDS: finasteride 5mg tablet PO SCH (15:47)
[2019-02-23] MEDS: morphine 2 MG/ML inj. syringe IV PRN ×2 (16:21→22:57)
--- NOTE | 2019-02-23 17:09 | NUR ---
Attempted report, receiving nurse not ready. States she will call back.
--- NOTE | 2019-02-23 17:45 | NUR ---
Patient arrived to room 310 and ambulated from [place] to bed. Oriented to room and call light. and dog at bedside.
[2019-02-23 17:55] VITALS: BP 135/72
--- NOTE | 2019-02-23 18:00 | NUR ---
Problems reprioritized. Patient report given, questions answered & plan of care reviewed with Lula.
[2019-02-23] MEDS ORDERED: traMADol 50MG tablet PO PRN (18:05)
[2019-02-23 18:30] LABS: HEMOGLOBIN A1C 5.9 % (4.5-6.2)
--- NOTE | 2019-02-23 18:31 | NUR ---
Patient in room MED 310. I have received report from VIRAL Green and Lois STRATTON and had the opportunity to ask questions and assume patient care.
[2019-02-23] MEDS: carvedilol 6.25mg tablet PO SCH (20:00)
--- NOTE | 2019-02-23 20:02 | NUR ---
Ordered A1C as an add-on order, results came back showing within normal limits at 5.9 and patient reports that he has no history of diabetes.
[2019-02-23 22:00] VITALS: BP 116/56
[2019-02-23] MEDS: gemfibrozil 600mg tablet PO SCH (22:09)
[2019-02-23] MEDS: omega-3 acid ethyl esters 1GM capsule PO SCH (22:10)
[2019-02-23] MEDS: ranolazine 500mg SR tablet (Q12H) PO SCH (22:10)
[2019-02-23] MEDS: tamsulosin 0.4mg capsule PO SCH (22:11)
[2019-02-24] VITALS (8 sets, daily range): BP systolic 114–141; BP diastolic 47–77
--- NOTE | 2019-02-24 04:39 | NUR ---
Orienteer documentation: I have reviewed and agree with all interventions, assessments performed and documented by Ana Saravia RN. Orienteer Medication Administration: For this medication-pass time frame, all medication were reviewed, dispensed, administered and documented per hospital policy by Ana Saravia RN.
[2019-02-24 05:38] LABS: BASOPHILS # (AUTO) 0.1 X10'3 (0-0.2); BASOPHILS % (AUTO) 1.1 % (0-1); EOSINOPHILS # (AUTO) 0.2 X10'3 (0-0.9); EOSINOPHILS % (AUTO) 4.2 % (0-6); HEMATOCRIT 35.8 % (42.0-52.0); HEMOGLOBIN 12.4 g/dl (14.0-17.9); LYMPHOCYTES # (AUTO) 1.7 X10'3 (1.1-4.8); LYMPHOCYTES % (AUTO) 34.8 % (21-51); MEAN CORPUSCULAR HEMOGLOBIN 34.6 PG (27.0-31.0); MEAN CORPUSCULAR HGB CONC 34.7 g/dL (33.0-36.5); MEAN CORPUSCULAR VOLUME 99.7 FL (78-98); MEAN PLATELET VOLUME 8.4 FL (7.4-10.4); MONOCYTES # (AUTO) 0.4 X10'3 (0-0.9); MONOCYTES % (AUTO) 7.3 % (2-12); NEUTROPHILS # (AUTO) 2.6 X10'3 (1.8-7.7); NEUTROPHILS % (AUTO) 52.6 % (42-75); PLATELET COUNT 120 X10'3 (140-440); RED BLOOD COUNT 3.59 X10'6 (4.70-6.10); RED CELL DISTRIBUTION WIDTH 12.9 % (11.5-14.5); WHITE BLOOD COUNT 4.9 X10'3 (4.5-11.0)
[2019-02-24 05:45] LABS: ALBUMIN 3.4 G/DL (3.4-5.0); ANION GAP 10 (8-16); BLOOD UREA NITROGEN 12 MG/DL (7-18); BUN/CREATININE RATIO 12.6 (5.4-32.0); CALCIUM 8.6 MG/DL (8.5-10.1); CHLORIDE 111 MMOL/L (99-107); CHOL/HDL RATIO 5.7 (0.00-4.99); CHOLESTEROL 113 MG/DL (0-200); CREATININE 0.95 MG/DL (0.60-1.10); GLUCOSE 103 MG/DL (70-104); HDL CHOLESTEROL 20 MG/DL (35-60); LDL CHOLESTEROL 72 MG/DL (50-100); MAGNESIUM 1.8 MG/DL (1.5-2.4); POTASSIUM 3.7 MMOL/L (3.5-5.1); SODIUM 144 MMOL/L (135-145); TOTAL CARBON DIOXIDE 22.7 MMOL/L (24-32); TRIGLYCERIDES 176 MG/DL (20-135); eGFR 76 ML/MIN
--- NOTE | 2019-02-24 06:00 | NUR ---
Patient in room MED 310. I have received report from Lula and had the opportunity to ask questions and assume patient care.
--- NOTE | 2019-02-24 06:27 | NUR ---
Problems reprioritized. Patient report given, questions answered & plan of care reviewed with VIRAL Cruz amd, RN (orienteer).
[2019-02-24] MEDS: morphine 2 MG/ML inj. syringe IV PRN (07:20)
[2019-02-24] MEDS ORDERED: atorvastatin 20mg tablet PO SCH ×2 (08:00→09:43)
[2019-02-24] MEDS: K and/or MAG REPLACEMENT MC SCH (08:00)
[2019-02-24] MEDS ORDERED: nitroGLYCERIN 0.2mg/hour patch TD SCH (08:11)
[2019-02-24] MEDS: aspirin 81mg tab.chew PO SCH (08:28)
[2019-02-24] MEDS: omega-3 acid ethyl esters 1GM capsule PO SCH ×2 (08:29→19:54)
[2019-02-24] MEDS: ranolazine 500mg SR tablet (Q12H) PO SCH ×2 (08:29→19:54)
[2019-02-24] MEDS: cyanocobalamin 500mcg tablet PO SCH (08:30)
[2019-02-24] MEDS: vitamin D (cholecalciferol) 1,000 unit tablet PO SCH (08:31)
[2019-02-24] MEDS: gemfibrozil 600mg tablet PO SCH ×2 (08:31→19:54)
[2019-02-24] MEDS: finasteride 5mg tablet PO SCH (08:32)
[2019-02-24] MEDS: carvedilol 6.25mg tablet PO SCH ×2 (08:32→19:54)
[2019-02-24] MEDS: pantoprazole 40mg Tablet.DR PO SCH (08:32)
[2019-02-24] MEDS: ipratropium 0.5 MG/2.5ML nebule IH SCH ×3 (08:51→20:22)
[2019-02-24] MEDS: HYDROcodone/acetaminophen 10/325mg tab PO PRN ×3 (11:51→21:48)
[2019-02-24] MEDS ORDERED: iohexol 350MG/ML 100ml bottle IV ONE (15:33)
--- NOTE | 2019-02-24 18:00 | NUR ---
Problems reprioritized. Patient report given, questions answered & plan of care reviewed with
--- NOTE | 2019-02-24 18:40 | NUR ---
Patient in room MED 310. I have received report from Lois STRATTON and had the opportunity to ask questions and assume patient care.
[2019-02-24] MEDS: tamsulosin 0.4mg capsule PO SCH (21:48)
[2019-02-25 02:00] VITALS: BP 96/54
[2019-02-25] MEDS: ipratropium 0.5 MG/2.5ML nebule IH SCH ×2 (02:22→08:58)
[2019-02-25] MEDS: HYDROcodone/acetaminophen 10/325mg tab PO PRN ×2 (02:26→08:11)
[2019-02-25 05:33] LABS: BASOPHILS % (AUTO) 0.5 % (0-1); EOSINOPHILS # (AUTO) 0.3 X10'3 (0-0.9); HEMATOCRIT 37.2 % (42.0-52.0); HEMOGLOBIN 12.8 g/dl (14.0-17.9); LYMPHOCYTES # (AUTO) 1.8 X10'3 (1.1-4.8); LYMPHOCYTES % (AUTO) 42.2 % (21-51); MEAN CORPUSCULAR HEMOGLOBIN 34.5 PG (27.0-31.0); MEAN CORPUSCULAR HGB CONC 34.5 g/dL (33.0-36.5); MEAN PLATELET VOLUME 8.7 FL (7.4-10.4); MONOCYTES # (AUTO) 0.4 X10'3 (0-0.9); MONOCYTES % (AUTO) 8.4 % (2-12); NEUTROPHILS # (AUTO) 1.8 X10'3 (1.8-7.7); NEUTROPHILS % (AUTO) 42.9 % (42-75); PLATELET COUNT 125 X10'3 (140-440); RED BLOOD COUNT 3.72 X10'6 (4.70-6.10); RED CELL DISTRIBUTION WIDTH 12.9 % (11.5-14.5); WHITE BLOOD COUNT 4.3 X10'3 (4.5-11.0)
[2019-02-25 05:41] LABS: ALBUMIN 3.4 G/DL (3.4-5.0); ANION GAP 8 (8-16); BLOOD UREA NITROGEN 17 MG/DL (7-18); BUN/CREATININE RATIO 19.8 (5.4-32.0); CALCIUM 9.1 MG/DL (8.5-10.1); CHLORIDE 107 MMOL/L (99-107); CREATININE 0.86 MG/DL (0.60-1.10); GLUCOSE 112 MG/DL (70-104); MAGNESIUM 1.9 MG/DL (1.5-2.4); SODIUM 139 MMOL/L (135-145); TOTAL CARBON DIOXIDE 24.2 MMOL/L (24-32); eGFR 86 ML/MIN
[2019-02-25 06:00] VITALS: BP 130/77
--- NOTE | 2019-02-25 06:02 | NUR ---
Problems reprioritized. Patient report given, questions answered & plan of care reviewed with Luciano STRATTON.
[2019-02-25] MEDS: K and/or MAG REPLACEMENT MC SCH (08:00)
[2019-02-25] MEDS: omega-3 acid ethyl esters 1GM capsule PO SCH (08:07)
[2019-02-25] MEDS: vitamin D (cholecalciferol) 1,000 unit tablet PO SCH (08:07)
[2019-02-25] MEDS: pantoprazole 40mg Tablet.DR PO SCH (08:07)
[2019-02-25] MEDS: ranolazine 500mg SR tablet (Q12H) PO SCH (08:08)
[2019-02-25] MEDS: gemfibrozil 600mg tablet PO SCH (08:08)
[2019-02-25] MEDS: aspirin 81mg tab.chew PO SCH (08:08)
[2019-02-25] MEDS: cyanocobalamin 500mcg tablet PO SCH (08:08)
[2019-02-25] MEDS: finasteride 5mg tablet PO SCH (08:09)
[2019-02-25] MEDS: carvedilol 6.25mg tablet PO SCH (08:11)
--- NOTE | 2019-02-25 10:52 | NUR ---
d/c education provided; all questions answered. awaiting pt transportation.
[2019-02-25 11:00] VITALS: BP 115/65
--- NOTE | 2019-02-25 11:00 | NUR ---
PAGER ID: [phone] MESSAGE: [phone] Arjun Banegas. pt states that he will be receiving rx for pain meds to go home with. please clarify. thank you. Luciano STRATTON ext [phone]
--- NOTE | 2019-02-25 12:45 | NUR ---
pt declined to have RN make follow up appointment. pt will make own follow up appt
--- NOTE | 2019-02-25 13:48 | NUR ---
d/c education provided including follow up and medications; all questions answered. pt removed from cardiac monitoring and IV removed; cannula intact. pt wheeled downstairs with all belongings.
== END 2019-02-25 13:58 | disposition home or self-care (01) | DRG 303 ==
LOC: ER 10:49 → MED 3N 17:37 → CMPBEDREQ 21:00
PROVIDERS: ADMIT Internal Medicine; ATTEND Internal Medicine
PROC: B32T1ZZ Computerized Tomography (CT Scan) of Left Pulmonary Artery using Low Osmolar Contrast (ICD-10-PCS; principal; 2019-02-24)
PROC: B3201ZZ Computerized Tomography (CT Scan) of Thoracic Aorta using Low Osmolar Contrast (ICD-10-PCS; 2019-02-24)
PROC: B32S1ZZ Computerized Tomography (CT Scan) of Right Pulmonary Artery using Low Osmolar Contrast (ICD-10-PCS; 2019-02-24)
DX: I25.118 Atherosclerotic heart disease of native coronary artery with other forms of angina pectoris (principal); Z79.82 Long term (current) use of aspirin; I10 Essential (primary) hypertension; E78.00 Pure hypercholesterolemia, unspecified; E78.5 Hyperlipidemia, unspecified; Z96.651 Presence of right artificial knee joint; G89.29 Other chronic pain; M54.9 Dorsalgia, unspecified; N40.0 Benign prostatic hyperplasia without lower urinary tract symptoms; Z60.2 Problems related to living alone; K21.9 Gastro-esophageal reflux disease without esophagitis; J44.9 Chronic obstructive pulmonary disease, unspecified; E11.9 Type 2 diabetes mellitus without complications; I25.2 Old myocardial infarction; Z86.73 Personal history of transient ischemic attack (TIA), and cerebral infarction without residual deficits; Z95.5 Presence of coronary angioplasty implant and graft; Z88.0 Allergy status to penicillin; Z88.5 Allergy status to narcotic agent; Z86.718 Personal history of other venous thrombosis and embolism; Z90.49 Acquired absence of other specified parts of digestive tract; Z79.899 Other long term (current) drug therapy
CPT/HCPCS: 36415; 71045; 71275; 80048; 80053; 80061; 83036; 83735; 83880; 84484; 85025; 85379; 85610; 85730; 87081; 93005; 94640; 94760; 96374; 99284; 99285; G0378; J1885; J2270; J3420; J7611; Q9967

== ENCOUNTER 2019-06-15 13:40 | Emergency (ER) | payer MEDICARE, MEDICAID ==
[~2019-06-15] VITALS: Ht 167.6 cm; Wt 86.0 kg
[~2019-06-15 13:40] MED LIST changes: -ADV50250 IH; +CARV6.253 PO; -COR3.125T PO; +FLUT100D2 INH; -PREN1TAB75 PO; +RANO500T5 PO; -TOPI25TA15 PO
[2019-06-15 14:03] VITALS: BP 136/70
[2019-06-15] MEDS ORDERED: AZIT-63 PO (15:28)
[2019-06-15] MEDS ORDERED: METH4TAB81 PO (15:28)
== END 2019-06-15 16:00 | disposition home or self-care (01) ==
LOC: ER 13:41
DX: J44.1 Chronic obstructive pulmonary disease with (acute) exacerbation (principal); J02.9 Acute pharyngitis, unspecified; I25.10 Atherosclerotic heart disease of native coronary artery without angina pectoris; E78.00 Pure hypercholesterolemia, unspecified; I10 Essential (primary) hypertension; I25.2 Old myocardial infarction; G89.29 Other chronic pain; Z86.718 Personal history of other venous thrombosis and embolism; Z86.73 Personal history of transient ischemic attack (TIA), and cerebral infarction without residual deficits; Z90.49 Acquired absence of other specified parts of digestive tract; Z98.890 Other specified postprocedural states; Z95.5 Presence of coronary angioplasty implant and graft; Z60.2 Problems related to living alone; Z88.0 Allergy status to penicillin; Z88.6 Allergy status to analgesic agent; Z79.82 Long term (current) use of aspirin; Z79.899 Other long term (current) drug therapy
CPT/HCPCS: 71046; 87081; 87880; 99284

== ENCOUNTER 2019-10-19 16:22 | Inpatient (IN) | payer MEDICAID, MEDICARE, OTHER ==
[~2019-10-19] VITALS: Ht 168.9 cm; Wt 90.0 kg
[~2019-10-19 16:22] MED LIST changes: +METH4TAB81 PO; -NIT5P TD; +NITR1PAT63 TD
[2019-10-19 16:53] LABS: BASOPHILS % (AUTO) 0.5 % (0-1); EOSINOPHILS # (AUTO) 0.2 X10'3 (0-0.9); EOSINOPHILS % (AUTO) 5.1 % (0-6); HEMOGLOBIN 12.7 g/dl (14.0-17.9); LYMPHOCYTES # (AUTO) 1.4 X10'3 (1.1-4.8); LYMPHOCYTES % (AUTO) 30.3 % (21-51); MEAN CORPUSCULAR HEMOGLOBIN 34.7 PG (27.0-31.0); MEAN CORPUSCULAR HGB CONC 34.4 g/dL (33.0-36.5); MEAN CORPUSCULAR VOLUME 100.8 FL (78-98); MEAN PLATELET VOLUME 8.1 FL (7.4-10.4); MONOCYTES # (AUTO) 0.4 X10'3 (0-0.9); MONOCYTES % (AUTO) 8.5 % (2-12); NEUTROPHILS # (AUTO) 2.6 X10'3 (1.8-7.7); NEUTROPHILS % (AUTO) 55.6 % (42-75); PLATELET COUNT 131 X10'3 (140-440); RED BLOOD COUNT 3.66 X10'6 (4.70-6.10); RED CELL DISTRIBUTION WIDTH 12.8 % (11.5-14.5); WHITE BLOOD COUNT 4.7 X10'3 (4.5-11.0)
[2019-10-19 17:08] LABS: ALANINE AMINOTRANSFERASE 29 U/L (12-78); ALBUMIN 3.3 G/DL (3.4-5.0); ALBUMIN/GLOBULIN RATIO 0.9 (1.1-1.5); ALKALINE PHOSPHATASE 53 IU/L (46-116); ANION GAP 9 (8-16); ASPARTATE AMINO TRANSFERASE 19 U/L (10-37); BILIRUBIN,TOTAL 0.1 MG/DL (0.1-1.0); BLOOD UREA NITROGEN 15 MG/DL (7-18); BUN/CREATININE RATIO 14.9 (5.4-32.0); CALCIUM 8.5 MG/DL (8.5-10.1); CHLORIDE 109 MMOL/L (99-107); CREATININE 1.01 MG/DL (0.60-1.10); GLUCOSE 170 MG/DL (70-104); POTASSIUM 4.3 MMOL/L (3.5-5.1); SODIUM 142 MMOL/L (135-145); TOTAL CARBON DIOXIDE 24.3 MMOL/L (24-32); eGFR 71 ML/MIN
[2019-10-19] MEDS ORDERED: morphine 4 MG/ML inj SYRINge IV ONE (17:55)
[2019-10-19] MEDS: nitroGLYCERIN 0.4mg SUBLingual tab SL PRN ×4 (17:59→21:33)
--- NOTE | 2019-10-19 18:58 | NUR ---
Pt. reports no more chest pain after 3rd nitro and morphine.
[2019-10-19] MEDS ORDERED: HYDR-4353 PO (19:53)
[2019-10-19] MEDS ORDERED: regadenoson 0.4mg/5ml syringe IV ONE (20:05)
[2019-10-19] MEDS ORDERED: magnesium 2GM in 50ml NS 50 ML IV PRN (20:05)
[2019-10-19] MEDS ORDERED: mag hydrox/Alum hydrox/simeth 30ml oral suspension PO PRN (20:05)
[2019-10-19] MEDS ORDERED: ondansetron/PF 4mg/2ml inj IV PRN (20:05)
[2019-10-19] MEDS ORDERED: magnesium 4gm in 100ml NS 100 ML IV PRN (20:05)
[2019-10-19] MEDS ORDERED: docusate sod 100mg capsule PO PRN (20:05)
[2019-10-19] MEDS ORDERED: aminophylline 250mg/10ml inj. IV PRN (20:05)
[2019-10-19] MEDS ORDERED: potassium CL 10mEq/100ml bag 100 ML IV PRN ×2 (20:05)
[2019-10-19] MEDS ORDERED: nitroGLYCERIN 0.4mg SUBLingual tab SL PRN (20:05)
[2019-10-19] MEDS ORDERED: metoprolol tartrate 1mg/ml inj IV PRN (20:05)
[2019-10-19] MEDS ORDERED: acetaminophen 325mg tablet PO PRN (20:05)
[2019-10-19] MEDS ORDERED: potassium Cl 20 mEq SR tablet PO PRN ×2 (20:05)
--- NOTE | 2019-10-19 21:00 | NUR ---
Problems reprioritized. Patient report given, questions answered & plan of care reviewed with Trace STRATTON. Patient came to the unit shortly after with all belongings and stable.
[2019-10-19 21:30] VITALS: BP 153/64
--- NOTE | 2019-10-19 21:45 | NUR ---
PAGER ID: [phone] MESSAGE: [id number] Arjun Banegas: Nitro x 3 given for pain, pt states it is tolerable after third dose. Can we put nitro patch on tonight? Lisa STRATTON [phone]
[2019-10-19 22:00] VITALS: BP 110/63
[2019-10-19] MEDS: tamsulosin 0.4mg capsule PO SCH (22:22)
[2019-10-20] VITALS (14 sets, daily range): BP systolic 98–126; BP diastolic 50–70
[2019-10-20 05:49] LABS: ALANINE AMINOTRANSFERASE 28 U/L (12-78); ALBUMIN 3.4 G/DL (3.4-5.0); ALBUMIN/GLOBULIN RATIO 0.9 (1.1-1.5); ALKALINE PHOSPHATASE 48 IU/L (46-116); ANION GAP 9 (8-16); ASPARTATE AMINO TRANSFERASE 25 U/L (10-37); BILIRUBIN,TOTAL 0.3 MG/DL (0.1-1.0); BLOOD UREA NITROGEN 15 MG/DL (7-18); BUN/CREATININE RATIO 16.7 (5.4-32.0); CALCIUM 8.9 MG/DL (8.5-10.1); CHLORIDE 110 MMOL/L (99-107); GLUCOSE 112 MG/DL (70-104); POTASSIUM 4.2 MMOL/L (3.5-5.1); SODIUM 144 MMOL/L (135-145); TOTAL CARBON DIOXIDE 25.5 MMOL/L (24-32); eGFR 81 ML/MIN
[2019-10-20 05:51] LABS: CHOL/HDL RATIO 5.2 (0.00-4.99); CHOLESTEROL 124 MG/DL (0-200); HDL CHOLESTEROL 24 MG/DL (35-60); LDL CHOLESTEROL 77 MG/DL (50-100); MAGNESIUM 1.9 MG/DL (1.5-2.4); TRIGLYCERIDES 183 MG/DL (20-135)
--- NOTE | 2019-10-20 06:21 | NUR ---
Problems reprioritized. Patient report given, questions answered & plan of care reviewed with Radha STRATTON.
--- NOTE | 2019-10-20 06:23 | NUR ---
Patient in room PCU 3013. I have received report from VIRAL Gonzalez and had the opportunity to ask questions and assume patient care.
[2019-10-20 06:38] LABS: BASOPHILS % (AUTO) 0.6 % (0-1); EOSINOPHILS # (AUTO) 0.2 X10'3 (0-0.9); EOSINOPHILS % (AUTO) 5.4 % (0-6); HEMATOCRIT 37.4 % (42.0-52.0); HEMOGLOBIN 12.8 g/dl (14.0-17.9); LYMPHOCYTES # (AUTO) 1.5 X10'3 (1.1-4.8); LYMPHOCYTES % (AUTO) 40.2 % (21-51); MEAN CORPUSCULAR HEMOGLOBIN 34.6 PG (27.0-31.0); MEAN CORPUSCULAR HGB CONC 34.2 g/dL (33.0-36.5); MEAN CORPUSCULAR VOLUME 101.4 FL (78-98); MONOCYTES # (AUTO) 0.3 X10'3 (0-0.9); MONOCYTES % (AUTO) 9.4 % (2-12); NEUTROPHILS # (AUTO) 1.7 X10'3 (1.8-7.7); NEUTROPHILS % (AUTO) 44.4 % (42-75); PLATELET COUNT 124 X10'3 (140-440); RED BLOOD COUNT 3.69 X10'6 (4.70-6.10); RED CELL DISTRIBUTION WIDTH 12.9 % (11.5-14.5); WHITE BLOOD COUNT 3.7 X10'3 (4.5-11.0)
[2019-10-20] MEDS: ipratropium/albuterol 3ml nebule NEB PRN (07:42)
[2019-10-20] MEDS: budesonide 0.5mg/2ml UD nebule IH SCH ×2 (07:42→19:24)
[2019-10-20] MEDS ORDERED: regadenoson 0.4mg/5ml syringe IV ONE (08:00)
[2019-10-20] MEDS: K and/or MAG REPLACEMENT MC SCH ×2 (08:00→20:00)
[2019-10-20] MEDS ORDERED: aminophylline 250mg/10ml inj. IV PRN (08:00)
[2019-10-20] MEDS: ipratropium 0.5 MG/2.5ML nebule NEB SCH ×3 (08:00→19:25)
[2019-10-20] MEDS: OMEGA-3/DHA/EPA/FISH OIL 1 EACH CAPSULE.DR PO SCH ×2 (08:20→19:54)
[2019-10-20] MEDS: pantoprazole 40mg Tablet.DR PO SCH (08:20)
[2019-10-20] MEDS: aspirin 81mg tab.chew PO SCH (08:20)
[2019-10-20] MEDS: cyanocobalamin 500mcg tablet PO SCH (08:21)
[2019-10-20] MEDS: ranolazine 500mg SR tablet (Q12H) PO SCH ×2 (08:22→19:54)
[2019-10-20] MEDS: vitamin D (cholecalciferol) 1,000 unit tablet PO SCH (08:22)
[2019-10-20] MEDS: gemfibrozil 600mg tablet PO SCH ×2 (08:22→19:55)
[2019-10-20] MEDS: atorvastatin 20mg tablet PO SCH (08:22)
[2019-10-20] MEDS: enoxaparin 40mg/0.4ml syringe SQ SCH (08:23)
[2019-10-20] MEDS: nitroGLYCERIN 0.2mg/hour patch TD SCH (08:24)
[2019-10-20] MEDS ORDERED: pneumococcal 23-VAL P-sac vacc 25 mcg/0.5ml vial IMVAC ONE (10:00)
[2019-10-20] MEDS: carvedilol 6.25mg tablet PO SCH ×2 (11:42→19:54)
[2019-10-20] MEDS: finasteride 5mg tablet PO SCH (11:43)
--- NOTE | 2019-10-20 13:27 | NUR ---
Called Dr Peck to inform of Marianela scan being resulted. She will consult with Dr Stewart. Dr Peck informed me that the patient is able to eat at this time.
--- NOTE | 2019-10-20 17:21 | NUR ---
Paged respiratory to inform them of patient having Atrovent neb treatments scheduled and never received them.
--- NOTE | 2019-10-20 17:42 | NUR ---
PATIENT HAD SVN TX THIS AM AT 0740 WITH PULMICORT AND DUONEB WHICH IS IN THE EMAR. NO NOTIFICATION WAS SENT NOR WAS A TEXT SENT TO [facility] THAT THERE WERE SCHEDULED TX'S ADDED. Addendum: 10/20/19 at 1744 by Jose Alejandro Puentes RT Amended: Links added.
--- NOTE | 2019-10-20 17:47 | NUR ---
THANK YOU FOR THE NOTICE AND THE PROBLEM HAS BEEN CORRECTED. Addendum: 10/20/19 at 1747 by Jose Alejandro Puentes RT Amended: Links added.
--- NOTE | 2019-10-20 18:00 | NUR ---
Patient in room PCU 3013. I have received report from Radha STRATTON and had the opportunity to ask questions and assume patient care.
--- NOTE | 2019-10-20 18:29 | NUR ---
Problems reprioritized. Patient report given, questions answered & plan of care reviewed with VIRAL Gonzalez. All patient needs met at this time.
[2019-10-20] MEDS: tamsulosin 0.4mg capsule PO SCH (19:54)
[2019-10-21 02:00] VITALS: BP 145/63
[2019-10-21] MEDS: ipratropium 0.5 MG/2.5ML nebule NEB SCH ×2 (02:03→07:34)
[2019-10-21 04:53] LABS: BASOPHILS % (AUTO) 0.4 % (0-1); EOSINOPHILS # (AUTO) 0.2 X10'3 (0-0.9); HEMATOCRIT 37.4 % (42.0-52.0); HEMOGLOBIN 12.9 g/dl (14.0-17.9); LYMPHOCYTES # (AUTO) 1.7 X10'3 (1.1-4.8); LYMPHOCYTES % (AUTO) 36.7 % (21-51); MEAN CORPUSCULAR HEMOGLOBIN 34.8 PG (27.0-31.0); MEAN CORPUSCULAR HGB CONC 34.5 g/dL (33.0-36.5); MEAN CORPUSCULAR VOLUME 100.9 FL (78-98); MEAN PLATELET VOLUME 8.2 FL (7.4-10.4); MONOCYTES # (AUTO) 0.4 X10'3 (0-0.9); MONOCYTES % (AUTO) 8.2 % (2-12); NEUTROPHILS # (AUTO) 2.3 X10'3 (1.8-7.7); NEUTROPHILS % (AUTO) 50.7 % (42-75); PLATELET COUNT 127 X10'3 (140-440); RED BLOOD COUNT 3.71 X10'6 (4.70-6.10); RED CELL DISTRIBUTION WIDTH 12.8 % (11.5-14.5); WHITE BLOOD COUNT 4.6 X10'3 (4.5-11.0)
[2019-10-21 05:18] LABS: ALANINE AMINOTRANSFERASE 29 U/L (12-78); ALBUMIN 3.5 G/DL (3.4-5.0); ALBUMIN/GLOBULIN RATIO 0.9 (1.1-1.5); ALKALINE PHOSPHATASE 53 IU/L (46-116); ANION GAP 10 (8-16); ASPARTATE AMINO TRANSFERASE 23 U/L (10-37); BILIRUBIN,TOTAL 0.2 MG/DL (0.1-1.0); BLOOD UREA NITROGEN 17 MG/DL (7-18); BUN/CREATININE RATIO 18.9 (5.4-32.0); CHLORIDE 109 MMOL/L (99-107); GLUCOSE 118 MG/DL (70-104); POTASSIUM 3.8 MMOL/L (3.5-5.1); SODIUM 143 MMOL/L (135-145); TOTAL CARBON DIOXIDE 24.2 MMOL/L (24-32); TOTAL PROTEIN 7.3 G/DL (6.4-8.2); eGFR 81 ML/MIN
[2019-10-21 06:00] VITALS: BP 121/50
--- NOTE | 2019-10-21 06:10 | NUR ---
Patient in room PCU 3013. I have received report from VIRAL Gonzalez and had the opportunity to ask questions and assume patient care.
--- NOTE | 2019-10-21 06:22 | NUR ---
Problems reprioritized. Patient report given, questions answered & plan of care reviewed with Radha STRATTON.
[2019-10-21] MEDS: finasteride 5mg tablet PO SCH (07:20)
[2019-10-21] MEDS: vitamin D (cholecalciferol) 1,000 unit tablet PO SCH (07:21)
[2019-10-21] MEDS: ranolazine 500mg SR tablet (Q12H) PO SCH (07:21)
[2019-10-21] MEDS: OMEGA-3/DHA/EPA/FISH OIL 1 EACH CAPSULE.DR PO SCH (07:22)
[2019-10-21] MEDS: atorvastatin 20mg tablet PO SCH (07:22)
[2019-10-21] MEDS: cyanocobalamin 500mcg tablet PO SCH (07:22)
[2019-10-21] MEDS: aspirin 81mg tab.chew PO SCH (07:22)
[2019-10-21] MEDS: gemfibrozil 600mg tablet PO SCH (07:22)
[2019-10-21] MEDS: pantoprazole 40mg Tablet.DR PO SCH (07:22)
[2019-10-21] MEDS: carvedilol 6.25mg tablet PO SCH (07:22)
[2019-10-21] MEDS: enoxaparin 40mg/0.4ml syringe SQ SCH (07:24)
[2019-10-21] MEDS: budesonide 0.5mg/2ml UD nebule IH SCH (07:34)
[2019-10-21] MEDS: K and/or MAG REPLACEMENT MC SCH (08:00)
[2019-10-21] MEDS: nitroGLYCERIN 0.2mg/hour patch TD SCH (08:00)
[2019-10-21 11:00] VITALS: BP 142/85
[2019-10-21] MEDS: ipratropium/albuterol 3ml nebule NEB PRN (13:42)
--- NOTE | 2019-10-21 14:10 | NUR ---
Patient stable for discharge. All instructions were given, questions were answered. PIV discontinued, cannula intact. Tele monitor discontinued, telemetry monitor notified. Patient was informed to make an appointment with PCP in one week and with Dr Stewart in 3 months. All belongings were collected and sent with patient. Wheeled patient to lobby, helped patient into friend's vehicle.
== END 2019-10-21 14:10 | disposition home or self-care (01) | DRG 303 ==
LOC: ER 16:22 → ED HOLD 20:21 → PCU 3S 21:15 → OBSVTOIN 10-21 08:45
PROVIDERS: ADMIT Family Medicine; ATTEND Internal Medicine
PROC: 3E0234Z Introduction of Serum, Toxoid and Vaccine into Muscle, Percutaneous Approach (ICD-10-PCS; principal; 2019-10-20)
DX: I25.10 Atherosclerotic heart disease of native coronary artery without angina pectoris (principal); I10 Essential (primary) hypertension; E78.5 Hyperlipidemia, unspecified; R07.89 Other chest pain; E78.00 Pure hypercholesterolemia, unspecified; G89.29 Other chronic pain; M54.9 Dorsalgia, unspecified; J44.9 Chronic obstructive pulmonary disease, unspecified; R61 Generalized hyperhidrosis; N40.0 Benign prostatic hyperplasia without lower urinary tract symptoms; Z96.651 Presence of right artificial knee joint; Z87.891 Personal history of nicotine dependence; Z82.49 Family history of ischemic heart disease and other diseases of the circulatory system; I25.2 Old myocardial infarction; Z90.49 Acquired absence of other specified parts of digestive tract; Z95.5 Presence of coronary angioplasty implant and graft; Z86.718 Personal history of other venous thrombosis and embolism; Z83.3 Family history of diabetes mellitus; Z88.0 Allergy status to penicillin; Z86.73 Personal history of transient ischemic attack (TIA), and cerebral infarction without residual deficits; Z88.6 Allergy status to analgesic agent; Z23 Encounter for immunization; Z99.81 Dependence on supplemental oxygen
CPT/HCPCS: 36415; 71045; 76937; 78452; 80053; 80061; 83735; 83880; 84484; 85025; 85610; 87081; 90732; 93005; 93017; 93306; 94640; 94760; 99285; A9500; G0378; J1650; J2270; J2785; J7626

== ENCOUNTER 2019-11-25 17:47 | Emergency (ER) | payer OTHER ==
[~2019-11-25] VITALS: Ht 167.6 cm; Wt 97.0 kg
[~2019-11-25 17:47] MED LIST changes: +HYDR-4353 PO; -METH4TAB81 PO; -NORCO10T PO
[2019-11-25 17:57] VITALS: BP 123/76
--- NOTE | 2019-11-25 19:53 | NUR ---
pt LWOBS - he had an xray taken which was reviewed by MD Mota and does not show fracture. Attempted to call patient to let him know the results and to f\u with his PMD if he is still having issues as it may be an occult fracture. No answer at the number listed in contacts. A message was left asking pt to return my call.
== END 2019-11-25 20:03 | disposition left against medical advice (07) ==
LOC: ER 17:48
DX: S90.31XA Contusion of right foot, initial encounter (principal); Z53.21 Procedure and treatment not carried out due to patient leaving prior to being seen by health care provider; W22.8XXA Striking against or struck by other objects, initial encounter; Y93.89 Activity, other specified; Y92.89 Other specified places as the place of occurrence of the external cause; Y99.9 Unspecified external cause status
CPT/HCPCS: 73630; 99281

== ENCOUNTER 2020-02-08 21:40 | Emergency (ER) | payer OTHER, MEDICARE, MEDICAID ==
[~2020-02-08] VITALS: Ht 167.6 cm; Wt 90.4 kg
[2020-02-08 22:22] LABS: BASOPHILS % (AUTO) 0.5 % (0-1); EOSINOPHILS # (AUTO) 0.2 X10'3 (0-0.9); EOSINOPHILS % (AUTO) 3.5 % (0-6); HEMATOCRIT 42.1 % (42.0-52.0); HEMOGLOBIN 14.4 g/dl (14.0-17.9); LYMPHOCYTES # (AUTO) 2.6 X10'3 (1.1-4.8); LYMPHOCYTES % (AUTO) 39.9 % (21-51); MEAN CORPUSCULAR HEMOGLOBIN 34.1 PG (27.0-31.0); MEAN CORPUSCULAR HGB CONC 34.2 g/dL (33.0-36.5); MEAN CORPUSCULAR VOLUME 99.6 FL (78-98); MEAN PLATELET VOLUME 8.2 FL (7.4-10.4); MONOCYTES # (AUTO) 0.6 X10'3 (0-0.9); NEUTROPHILS % (AUTO) 46.1 % (42-75); PLATELET COUNT 186 X10'3 (140-440); RED BLOOD COUNT 4.23 X10'6 (4.70-6.10); RED CELL DISTRIBUTION WIDTH 13.1 % (11.5-14.5); WHITE BLOOD COUNT 6.4 X10'3 (4.5-11.0)
[2020-02-08 22:23] LABS: ALANINE AMINOTRANSFERASE 42 U/L (12-78); ALBUMIN 4.1 G/DL (3.4-5.0); ALBUMIN/GLOBULIN RATIO 1.1 (1.1-1.5); ALKALINE PHOSPHATASE 58 IU/L (46-116); ANION GAP 13 (8-16); ASPARTATE AMINO TRANSFERASE 26 U/L (10-37); BILIRUBIN,TOTAL 0.4 MG/DL (0.1-1.0); BLOOD UREA NITROGEN 8 MG/DL (7-18); BUN/CREATININE RATIO 6.5 (5.4-32.0); CALCIUM 9.2 MG/DL (8.5-10.1); CHLORIDE 109 MMOL/L (99-107); CREATININE 1.23 MG/DL (0.60-1.10); GLUCOSE 101 MG/DL (70-104); LIPASE 579 U/L (73-393); POTASSIUM 3.1 MMOL/L (3.5-5.1); SODIUM 144 MMOL/L (135-145); TOTAL CARBON DIOXIDE 22.5 MMOL/L (24-32); TOTAL PROTEIN 7.9 G/DL (6.4-8.2); eGFR 56 ML/MIN
[2020-02-08] MEDS ORDERED: normal saline 1000ml 1,000 ML IV ONE (23:25)
[2020-02-09 01:00] LABS: ETHANOL < 0.010 GM/DL (0.0-0.010)
[2020-02-09 01:32] LABS: MAGNESIUM 1.8 MG/DL (1.5-2.4)
[2020-02-09] MEDS ORDERED: magnesium 2GM in 50ml NS 50 ML IV ONE (01:35)
[2020-02-09] MEDS ORDERED: normal saline 1000ML IV soln IVB ONE (01:35)
[2020-02-09] MEDS ORDERED: potassium Cl 20 mEq SR tablet PO ONE (01:35)
[2020-02-09] MEDS ORDERED: magnesium oxide 400mg tablet PO ONE (01:35)
[2020-02-09] MEDS ORDERED: iohexol 300mg/ml 100ml inj. ONE (01:38)
[2020-02-09 01:46] LABS: CLARITY,URINE CLEAR (Clear); COLOR,URINE YELLOW (Yellow); GLUCOSE, URINE NEGATIVE (Neg); KETONES,URINE NEGATIVE (Neg); LEUKOCYTE ESTERASE ,URINE NEGATIVE (Neg); NITRITES, URINE NEGATIVE (Neg); OCCULT BLOOD,URINE NEGATIVE (Neg); PROTEIN,URINE NEGATIVE (Neg); UROBILINOGEN,URINE 0.2 E.U/dL (0.2-1.0)
[2020-02-09 01:59] LABS: URINE AMPHETAMINE SCREEN NEGATIVE (Neg); URINE BARBITUATE SCREEN NEGATIVE (Neg); URINE BENZODIAZEPINES SCREEN NEGATIVE (Neg); URINE CANNABINOID SCREEN NEGATIVE (Neg); URINE COCAINE SCREEN NEGATIVE (Neg); URINE METHADONE SCREEN NEGATIVE (Neg); URINE OPIATE SCREEN NEGATIVE (Neg); URINE PHENCYCLIDINE SCREEN NEGATIVE (Neg)
[2020-02-09 02:01] LABS: UA COLLECTION TYPE URINAL
[2020-02-09] MEDS ORDERED: diphenoxylate/atropine tablet (Lomotil) PO ONE (02:30)
[2020-02-09] MEDS ORDERED: POTA10TA19 PO (02:38)
[2020-02-09 02:44] VITALS: BP 126/62
== END 2020-02-09 02:45 | disposition home or self-care (01) ==
LOC: ER 21:41
DX: R19.7 Diarrhea, unspecified (principal); E87.6 Hypokalemia; N17.9 Acute kidney failure, unspecified; K85.90 Acute pancreatitis without necrosis or infection, unspecified; I25.10 Atherosclerotic heart disease of native coronary artery without angina pectoris; E78.00 Pure hypercholesterolemia, unspecified; I10 Essential (primary) hypertension; I25.2 Old myocardial infarction; J44.9 Chronic obstructive pulmonary disease, unspecified; K21.9 Gastro-esophageal reflux disease without esophagitis; G89.29 Other chronic pain; Z86.73 Personal history of transient ischemic attack (TIA), and cerebral infarction without residual deficits; Z86.19 Personal history of other infectious and parasitic diseases; Z98.61 Coronary angioplasty status; Z90.49 Acquired absence of other specified parts of digestive tract; Z98.890 Other specified postprocedural states; Z60.2 Problems related to living alone; Z88.0 Allergy status to penicillin; Z88.8 Allergy status to other drugs, medicaments and biological substances; Z79.82 Long term (current) use of aspirin; Z79.899 Other long term (current) drug therapy
CPT/HCPCS: 36415; 74177; 80053; 80305; 80320; 81003; 83690; 83735; 84443; 85025; 93005; 96361; 96365; 99285; J3475; J7030; Q9967